=== PATIENT | female | born 2000 | race Caucasian/White ===

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

== ENCOUNTER 2019-03-19 18:26 | Observation (INO) | payer MEDICAID, OTHER ==
[2019-03-19] MEDS ORDERED: Promethazine 25 MG Tab PO PRN (18:29)
[2019-03-19] MEDS ORDERED: Ondansetron 4 MG/2 ML SDV IV PRN (18:29)
[2019-03-19] MEDS ORDERED: Ketorolac 30 MG/ML SDV IVPUSH PRN (18:29)
[2019-03-19] MEDS ORDERED: Sodium Chloride 0.9% 10 ML Syringe FLUSH PRN (18:29)
[2019-03-19] MEDS ORDERED: Acetaminophen 325 MG Tab PO PRN (18:29)
--- NOTE | 2019-03-19 18:45 | PCM.HP ---
H&P History of Present Illness - General Date of Service: 03/19/19 Admit Problem/Dx: Admission Diagnosis/Problem Admission Diagnosis/Problem Abdominal pain Source of Information: Patient - History of Present Illness Initial Comments - Free Text/Narative: 19 year old female with 1 day history of abdominal pain, rates 10/10, feels better lying with her legs up than flat and not moving. She states started yesterday after lunch, she did not eat anything differently or having any sick contacts. She started vomiting this morning with clear/foamy/yellow emesis. Also having diarrhea since this morning. Denies any fevers but having night sweats and chills. No sinus symptoms. No sore throat. No chest pain or shortness of breath. No dysuria or hematuria. LMP: 2-3 years ago, had Mirena IUD placed for menorrhagia. Was seen in ER in Aug for abdominal pain, had CT which showed 1.8 cm cyst on right ovary, has not follow up with Dr Perdue in regards to this. - Related Data Allergies/Adverse Reactions: Allergies Allergy/AdvReac Type Severity Reaction Status Date / Time Sulfa (Sulfonamide Allergy Hives Verified 08/28/18 02:22 Antibiotics) Home Medications: Home Meds Ciprofloxacin HCl [Cipro] 500 mg PO BID #20 tablet 08/28/18 [Rx] Phenazopyridine HCl [Pyridium] 200 mg PO Q8HR #9 tablet 08/28/18 [Rx] Past Medical History Respiratory History: Reports: Other (See Below) Other Respiratory History: had URI Gastrointestinal History: Reports: Other (See Below) Other Gastrointestinal History: Hx stomach problems. Hx tear is esophagus. 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 Social & Family History - Family History Family Medical History: Noncontributory - Tobacco Use Smoking Status *Q: Former Smoker - Caffeine Use Caffeine Use: Reports: None H&P Review of Systems - Review of Systems: Review Of Systems: See Below General: Reports: Chills, Malaise, Fatigue, Night Sweats. Denies: Fever HEENT: Reports: No Symptoms Pulmonary: Reports: No Symptoms Cardiovascular: Reports: No Symptoms Gastrointestinal: Reports: Abdominal Pain, Anorexia, Diarrhea, Decreased Appetite, Nausea, Vomiting. Denies: Distension Genitourinary: Reports: No Symptoms Musculoskeletal: Reports: No Symptoms Exam - Exam Exam: See Below - Vital Signs Vital Signs: from Clinic: BP:112/57, P100, T98.6F, R18 Weight: 52.404 kg - Exam General: Alert, Oriented, Moderate Distress HEENT: PERRLA, Conjunctiva Clear, EOMI, Hearing Intact, Posterior Pharynx Clear , Pupils Equal, TMs Clear, Other (dry tacky mucosa) Neck: Supple, Trachea Midline Lungs: Clear to Auscultation, Normal Respiratory Effort Cardiovascular: Regular Rate, Regular Rhythm GI/Abdominal Exam: Soft, No Organomegaly, No Distention, No Mass, Guarding, Tender, Abnormal Bowel Sounds (hyperactive). No: Rigid, Rebound Extremities: Normal Inspection, No Pedal Edema Peripheral Pulses: 2+: Radial (L), Radial (R) Skin: Warm, Dry, Intact Neuro Extensive - Mental Status: Alert, Oriented x3, Normal Mood/Affect, Normal Cognition, Memory Intact - Patient Data Lab Results Last 24 hrs: WBC: 18.0, segs 86%, 5% bands, CRP <0.2, CMP within normal limits except total protein slightly elevated. UA: negative nitrites, LEs but moderate epithelials, bacteria, mucus. CT abdomin/pelvis with contrast showed no appendicitis but bilateral ovarian cysts with right measuring 5 cm which is increased from 1.8 cm in Aug 2018. - Problem List (1) Abdominal pain SNOMED Code(s): 64690538 ICD Code: R10.9 - UNSPECIFIED ABDOMINAL PAIN Status: Acute (2) Dehydration SNOMED Code(s): 33941239 ICD Code: E86.0 - DEHYDRATION Status: Acute (3) Nausea & vomiting SNOMED Code(s): 87589289 ICD Code: R11.2 - NAUSEA WITH VOMITING, UNSPECIFIED Status: Acute (4) Diarrhea SNOMED Code(s): 47738095 ICD Code: R19.7 - DIARRHEA, UNSPECIFIED Status: Acute (5) Ovarian cyst SNOMED Code(s): 46180451 ICD Code: N83.209 - UNSPECIFIED OVARIAN CYST, UNSPECIFIED SIDE Status: Chronic Problem Details: noted on Aug 2018 CT, right cyst is enlarged to 5 cm from 1.8 in Aug. Problem List Initiated/Reviewed/Updated: Yes Orders Last 24hrs: Active Orders 24 hr Category Date Time Status Patient Status [ADT] Routine ADT 03/19/19 18:30 Ordered Ambulate [RC] PER UNIT ROUTINE Care 03/19/19 18:32 Ordered Antiembolic Devices [RC] .Routine Care 03/19/19 18:38 Ordered Oxygen Therapy [RC] PRN Care 03/19/19 18:30 Ordered Up ad Barbie [RC] ASDIRECTED Care 03/19/19 18:29 Ordered VTE/DVT Education [RC] Per Unit Routine Care 03/19/19 18:30 Ordered Vital Signs [RC] Q4H Care 03/19/19 18:30 Ordered Clear Liquid Diet [DIET] Diet 03/19/19 Dinner Ordered CBC WITH AUTO DIFF [HEME] AM Lab 03/20/19 05:11 Ordered STOOL CULTURE Routine Lab 03/19/19 18:38 Ordered Acetaminophen [Tylenol] Med 03/19/19 18:29 Ordered 650 mg PO Q4H PRN Ketorolac [Toradol] Med 03/19/19 18:29 Ordered 30 mg IVPUSH Q6H PRN Lactated Ringers @ 125 MLS/HR(1000ml) Med 03/19/19 18:30 Ordered Lactated Ringers [Ringers, Lactated] 1,000 ml IV ASDIRECTED Ondansetron [Zofran] Med 03/19/19 18:29 Ordered 4 mg IV Q6H PRN Promethazine [Phenergan] Med 03/19/19 18:29 Ordered 25 mg PO Q6H PRN Sodium Chloride 0.9% [Saline Flush] Med 03/19/19 18:29 Ordered 10 ml FLUSH ASDIRECTED PRN Peripheral IV Insertion Adult [OM.PC] Routine Oth 03/19/19 18:29 Ordered RADHA Hose [Antiembolic Hose] [OM.PC] Routine Oth 03/19/19 18:38 Ordered Resuscitation Status Routine Resus Stat 03/19/19 18:29 Ordered Medication Orders Acetaminophen (Tylenol) 650 mg PO Q4H PRN PRN Reason: Pain (Mild 1-3)/fever Lactated Ringer's (Ringers, Lactated) 1,000 mls @ 125 mls/hr IV ASDIRECTED CHING Ketorolac Tromethamine (Toradol) 30 mg IVPUSH Q6H PRN PRN Reason: Pain (moderate 4-6) Ondansetron HCl (Zofran) 4 mg IV Q6H PRN PRN Reason: Nausea/Vomiting Promethazine HCl (Phenergan) 25 mg PO Q6H PRN PRN Reason: nausea, able to take PO Sodium Chloride (Saline Flush) 10 ml FLUSH ASDIRECTED PRN PRN Reason: Keep Vein Open Assessment/Plan Comment:: 1. Admit for observation for IV fluids, pain control and observation. 2. Lactated ringers at 125 ml/hr. 3. Repeat CBC in am. Will hold off antibiotics at this time as most likely secondary to dehydration and/or viral gastroenteritis. 4. Stool culture. 5. Phenergan 25 mg PO if able to take orals and Zofran 4 mg IV as needed if unable to take orals. 6. Pain control: Acetaminophen 650 mg as needed fever/mild pain, Toradol 30 mg IV moderate pain. 7. Spoke with Dr Parker who will assume care in the morning. 8. Full Code. 9. Discussed with patient and family need to follow up with Dr Perdue as outpatient to get repeat ultrasound of her cysts in 2 weeks to evaluate.
[2019-03-19] MEDS: Lactated Ringers 1,000 ML IV SCH (20:19)
[2019-03-20] MEDS: Lactated Ringers 1,000 ML IV SCH (04:10)
--- NOTE | 2019-03-20 09:55 | PCM.PN ---
- General Info Date of Service: 03/20/19 Subjective Update: Had some nausea overnight. No pain today. Functional Status: Reports: Pain Controlled, Tolerating Diet - Review of Systems Pulmonary: Reports: No Symptoms Cardiovascular: Reports: No Symptoms Genitourinary: Reports: No Symptoms - Patient Data Vitals - Most Recent: Last Vital Signs Temp 98.3 F 03/20/19 06:10 Pulse 52 L 03/20/19 06:10 Resp 16 03/20/19 06:10 BP 85/42 L 03/20/19 06:10 Pulse Ox 95 03/20/19 06:10 Weight - Most Recent: 56.109 kg I&O - Last 24 Hours: Intake & Output 03/19/19 03/20/19 03/20/19 22:59 06:59 14:59 Intake Total 320 960 0 Output Total 200 0 0 Balance 120 960 0 Lab Results Last 24 Hours: Laboratory Results - last 24 hr 03/20/19 Range/Units 06:30 WBC 9.9 (4.5-12.0) X10-3/uL RBC 4.14 (3.23-5.20) x10(6)uL Hgb 13.1 (11.5-15.5) g/dL Hct 38.7 (30.0-51.3) % MCV 93.5 (80-96) fL MCH 31.5 (27.7-33.6) pg MCHC 33.7 (32.2-35.4) g/dL RDW 12.4 (11.5-15.5) % Plt Count 152 (125-369) X10(3)uL MPV 9.2 (7.4-10.4) fL Neut % (Auto) 57.5 (46-82) % Lymph % (Auto) 29.7 (13-37) % [place] % (Auto) 7.7 (4-12) % Eos % (Auto) 3 (1.0-5.0) % Baso % (Auto) 2 (0-2) % Neut # (Auto) 5.7 (1.6-8.3) # Lymph # (Auto) 2.9 (0.6-5.0) # [place] # (Auto) 0.8 (0.0-1.3) # Eos # (Auto) 0.3 (0.0-0.8) # Baso # (Auto) 0.2 (0.0-0.2) # Med Orders - Current: Current Medications Acetaminophen (Tylenol) 650 mg PO Q4H PRN PRN Reason: Pain (Mild 1-3)/fever Lactated Ringer's (Ringers, Lactated) 1,000 mls @ 125 mls/hr IV ASDIRECTED CHING Last Admin: 03/20/19 04:10 Dose: 125 mls/hr Ketorolac Tromethamine (Toradol) 30 mg IVPUSH Q6H PRN PRN Reason: Pain (moderate 4-6) Last Admin: 03/19/19 20:20 Dose: 30 mg Ondansetron HCl (Zofran) 4 mg IV Q6H PRN PRN Reason: Nausea/Vomiting Last Admin: 03/19/19 20:21 Dose: 4 mg Promethazine HCl (Phenergan) 25 mg PO Q6H PRN PRN Reason: nausea, able to take PO Last Admin: 03/19/19 23:04 Dose: 25 mg Sodium Chloride (Saline Flush) 10 ml FLUSH ASDIRECTED PRN PRN Reason: Keep Vein Open - Exam General: Alert, Oriented Lungs: Clear to Auscultation Cardiovascular: Regular Rate GI/Abdominal Exam: Normal Bowel Sounds, Soft, Non-Tender, No Mass - Problem List & Annotations (1) Leukocytosis SNOMED Code(s): 759975704, 120298337 Code(s): D72.829 - ELEVATED WHITE BLOOD CELL COUNT, UNSPECIFIED Status: Acute Current Visit: Yes Qualifiers: Leukocytosis type: bandemia Qualified Code(s): D72.825 - Bandemia (2) Abdominal pain SNOMED Code(s): 01040585 Code(s): R10.9 - UNSPECIFIED ABDOMINAL PAIN Status: Acute Current Visit: No Qualifiers: Abdominal location: generalized Qualified Code(s): R10.84 - Generalized abdominal pain (3) Dehydration SNOMED Code(s): 17406016 Code(s): E86.0 - DEHYDRATION Status: Acute Current Visit: No (4) Diarrhea SNOMED Code(s): 35621530 Code(s): R19.7 - DIARRHEA, UNSPECIFIED Status: Acute Current Visit: No (5) Nausea & vomiting SNOMED Code(s): 92563771 Code(s): R11.2 - NAUSEA WITH VOMITING, UNSPECIFIED Status: Acute Current Visit: No (6) Ovarian cyst SNOMED Code(s): 88462713 Code(s): N83.209 - UNSPECIFIED OVARIAN CYST, UNSPECIFIED SIDE Status: Chronic Current Visit: No Qualifiers: Laterality: bilateral Qualified Code(s): N83.201 - Unspecified ovarian cyst , right side; N83.202 - Unspecified ovarian cyst, left side Annotation/Comment:: noted on Aug 2018 CT, right cyst is enlarged to 5 cm from 1.8 in Aug. - Problem List Review Problem List Initiated/Reviewed/Updated: Yes - Plan Plan:: CBC is normal this morning. [facility]
[2019-03-20 10:53] VITALS: BP 98/57; PULSE 48
== END 2019-03-20 10:41 | disposition home or self-care (01) ==
LOC: FB.MS 19:16
PROVIDERS: ADMIT Family Medicine; ATTEND Family Medicine
DX: R10.84 Generalized abdominal pain (principal); E86.0 Dehydration; R19.7 Diarrhea, unspecified; R11.2 Nausea with vomiting, unspecified; N83.201 Unspecified ovarian cyst, right side; D72.825 Bandemia; Z88.2 Allergy status to sulfonamides; Z87.891 Personal history of nicotine dependence; Z79.899 Other long term (current) drug therapy
CPT/HCPCS: 36415; 85025; 96361; 96374; 96375; A9270; G0378; J1885; J2405; J7120

== ENCOUNTER 2019-03-29 04:26 | Emergency (ER) | payer MEDICAID, OTHER ==
[2019-03-29] MEDS ORDERED: Ondansetron 4 MG/2 ML SDV IVPUSH ONE (05:16)
[2019-03-29] MEDS ORDERED: Sodium Chloride 0.9% 1,000 ML IV ONE (05:17)
[2019-03-29] MEDS ORDERED: Ketorolac 30 MG/ML SDV IVPUSH ONE (05:21)
--- NOTE | 2019-03-29 05:33 | EDM.PDOC ---
ED HPI GENERAL MEDICAL PROBLEM - General Chief Complaint: Abdominal Pain Stated Complaint: ABD PAIN Time Seen by Provider: 03/29/19 05:00 Source of Information: Reports: Patient, Old Records History Limitations: Reports: No Limitations - History of Present Illness INITIAL COMMENTS - FREE TEXT/NARRATIVE: 19-year-old female presents with concern for nausea, acute onset abdominal pain over the last 3-4 hours which is crampy in nature. Vomited one time, no blood. She has had a history of chronic abdominal pain and reports to some degree chronic ongoing nausea. Also notes she has some constipation, and is uncertain when her last bowel movement was. She has noticed increased urinary frequency and going very small amounts. She also has noticed some vaginal discharge and some spotting over the last 3-4 days which is very light, requiring only a panty liner to be changed 3 or 4 times a day. She has an IUD in place and a history of ovarian cysts. She was admitted at the end of last week with elevated white blood cell count and possible UTI, discharged after one night. Did not go home on any antibiotics. Sexually active with her boyfriend only. Past medical history significant for one 3 years ago, no complications. Diagnosed with ovarian cysts this past winter. Also history of migraines. No history of bleeding or clotting disorders, however chart does note that IUD was placed for heavy periods. She denies fever, any chest pain, cough, shortness of breath, recent upper respiratory tract infections, numbness or tingling in her hands or feet. Does not take any medications regularly at home except for occasional OTC migraine medicine. lower abd RAS Pain Score (Numeric/FACES): 10 - Related Data Allergies Allergy/AdvReac Type Severity Reaction Status Date / Time Sulfa (Sulfonamide Allergy Hives Verified 03/19/19 23:05 Antibiotics) Home Meds: Home Meds Prochlorperazine Maleate [Compazine] 10 mg PO Q6HR PRN #24 tablet 03/29/19 [Rx] cephALEXin [Keflex] 500 mg PO BID 5 Days #10 cap 03/29/19 [Rx] Past Medical History HEENT History: Reports: Other (See Below) Other HEENT History: Wears glasses. Cardiovascular History: Reports: Other (See Below) Other Cardiovascular History: States she runs a fast heart rate. Respiratory History: Reports: Asthma Other Respiratory History: Past history of asthma. Gastrointestinal History: Reports: GERD, Other (See Below) Other Gastrointestinal History: History of stomach problems. History of tear in esophagus, related to acid reflux. 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 Musculoskeletal History: Reports: Other (See Below) Other Musculoskeletal History: Resless leg syndrome, more often in the night. Neurological History: Reports: Migraines Psychiatric History: Reports: Anxiety, Depression, PTSD, Other (See Below) Other Psychiatric History: EBD. Dermatologic History: Reports: Other (See Below) Other Dermatologic History: States she has a concerning rash, not yet evaluated by MD. - Infectious Disease History Infectious Disease History: Reports: None - Past Surgical History HEENT Surgical History: Reports: Other (See Below) Other HEENT Surgeries/Procedures: [place] teeth extraction. Female Surgical History: Reports: Other (See Below) Other Female Surgeries/Procedures: Cyst on right ovary. Social & Family History - Family History Family Medical History: Noncontributory - Tobacco Use Smoking Status *Q: Current Every Day Smoker - Caffeine Use Caffeine Use: Reports: None - Alcohol Use Alcohol Use History: Yes Date/Time of Last Drink Comment: social - Recreational Drug Use Recreational Drug Use: Yes Recreational Drug Type: Reports: Marijuana/Hashish - Sexual History Sexual History: Reports: Sexually Active, Single Partner, Vaginal [employer] - Living Situation & Occupation Living situation: Reports: with Significant Other Occupation: Employed Social History Comment: 1 daughter 3 years old ED ROS GENERAL - Review of Systems Review Of Systems: ROS reveals no pertinent complaints other than HPI. ED EXAM, GENERAL - Physical Exam Exam: See Below Free Text/Narrative:: Gen.: Alert, tired appearing and nontoxic. throat is without erythema, mucous membranes are moist. Head is atraumatic, pupils are equal and reactive, neck is supple and there is no cervical lymphadenopathy. Heart is regular rate and rhythm, lungs are clear with no wheezes or crackles and good air movement. abdomen has positive bowel sounds, soft, nondistended and diffusely tender with some focality in the lower abdomen versus the upper, no rebound or guarding. Pelvic exam shows normal external female genitalia. IUD strings are visible at the os, and the vaginal vault otherwise appears normal with no discharge. No cervical motion tenderness bimanual exam, very slight left adnexal tenderness and none on the right Peripheral pulses +2 in both the upper and lower extremities she has equal strength right side, gait is normal, there is no lower extremity edema. No obvious skin lesions or rashes. Course - Vital Signs Text/Narrative:: labs ordered, UA, test reviewed chart - do not see that she was screened for STDs on last admission, will get GC off urine IVF and zofran ordered abdominal exam benign Last Recorded V/S: Last Vital Signs Temp 36.8 C 03/29/19 04:26 Pulse 71 03/29/19 04:26 Resp 18 03/29/19 04:26 BP 112/57 L 03/29/19 04:26 Pulse Ox 100 03/29/19 04:26 - Orders/Labs/Meds Orders: Active Orders 24 hr Category Date Time Status CHLAMYDIA/GC AMPLIFICATION Routine Lab 03/29/19 04:47 Received CULTURE URINE [RM] Stat Lab 03/29/19 06:20 Ordered cephALEXin [Keflex] Med 03/29/19 06:44 Once 500 mg PO ONETIME ONE Labs: Laboratory Tests 03/29/19 03/29/19 03/29/19 Range/Units 04:47 04:47 05:00 WBC 10.7 (4.5-12.0) X10-3/uL RBC 4.77 (3.23-5.20) x10(6)uL Hgb 14.9 (11.5-15.5) g/dL Hct 44.8 (30.0-51.3) % MCV 93.9 (80-96) fL MCH 31.3 (27.7-33.6) pg MCHC 33.3 (32.2-35.4) g/dL RDW 12.6 (11.5-15.5) % Plt Count 234 (125-369) X10(3)uL MPV 8.8 (7.4-10.4) fL Neut % (Auto) 75.5 (46-82) % Lymph % (Auto) 15.5 (13-37) % [place] % (Auto) 5.0 (4-12) % Eos % (Auto) 1 (1.0-5.0) % Baso % (Auto) 3 H (0-2) % Neut # (Auto) 8.1 (1.6-8.3) # Lymph # (Auto) 1.7 (0.6-5.0) # [place] # (Auto) 0.5 (0.0-1.3) # Eos # (Auto) 0.1 (0.0-0.8) # Baso # (Auto) 0.3 H (0.0-0.2) # Sodium (135-145) mmol/L Potassium (3.5-5.3) mmol/L Chloride (100-110) mmol/L Carbon Dioxide (21-32) mmol/L BUN (7-18) mg/dL Creatinine (0.55-1.02) mg/dL Est Cr Clr Drug Dosing mL/min Estimated GFR (MDRD) (>60) BUN/Creatinine Ratio (9-20) Glucose (80-116) mg/dL Calcium (8.6-10.2) mg/dL Total Bilirubin (0.1-1.3) mg/dL AST (5-25) IU/L ALT (12-36) U/L Alkaline Phosphatase (56-112) IU/L Total Protein (6.0-8.0) g/dL Albumin (3.5-5.2) g/dL Globulin g/dL Albumin/Globulin Ratio Amylase (25-115) U/L Urine Color Yellow (YELLOW) Urine Appearance Slightly cloudy (CLEAR) Urine pH 6.5 (5.0-6.5) Ur Specific [place] 1.010 (1.010-1.025) Urine Protein Negative (NEGATIVE) mg/dL Urine Glucose (UA) Normal (NORMAL) mg/dL Urine Ketones 50 H (NEGATIVE) mg/dL Urine Occult Blood Large H (NEGATIVE) Urine Nitrite Negative (NEGATIVE) Urine Bilirubin Small H (NEGATIVE) Urine Urobilinogen 1 H (NEGATIVE) mg/dL Ur Leukocyte Esterase Small H (NEGATIVE) Urine RBC 5-10 H (0-5) Urine WBC 5-10 H (0-5) Ur Squamous Epith Cells Moderate H (NS,R,O) Urine Bacteria Moderate H (NS) Urine Mucus Moderate H (NS) Urine HCG, Qual Negative (NEGATIVE) 03/29/19 Range/Units 05:00 WBC (4.5-12.0) X10-3/uL RBC (3.23-5.20) x10(6)uL Hgb (11.5-15.5) g/dL Hct (30.0-51.3) % MCV (80-96) fL MCH (27.7-33.6) pg MCHC (32.2-35.4) g/dL RDW (11.5-15.5) % Plt Count (125-369) X10(3)uL MPV (7.4-10.4) fL Neut % (Auto) (46-82) % Lymph % (Auto) (13-37) % [place] % (Auto) (4-12) % Eos % (Auto) (1.0-5.0) % Baso % (Auto) (0-2) % Neut # (Auto) (1.6-8.3) # Lymph # (Auto) (0.6-5.0) # [place] # (Auto) (0.0-1.3) # Eos # (Auto) (0.0-0.8) # Baso # (Auto) (0.0-0.2) # Sodium 139 (135-145) mmol/L Potassium 4.1 (3.5-5.3) mmol/L Chloride 104 (100-110) mmol/L Carbon Dioxide 23 (21-32) mmol/L BUN 11 (7-18) mg/dL Creatinine 0.8 (0.55-1.02) mg/dL Est Cr Clr Drug Dosing 98.80 mL/min Estimated GFR (MDRD) > 60 (>60) BUN/Creatinine Ratio 13.8 (9-20) Glucose 92 (80-116) mg/dL Calcium 9.3 (8.6-10.2) mg/dL Total Bilirubin 0.7 (0.1-1.3) mg/dL AST 18 D (5-25) IU/L ALT 16 D (12-36) U/L Alkaline Phosphatase 47 L (56-112) IU/L Total Protein 8.1 H (6.0-8.0) g/dL Albumin 4.3 (3.5-5.2) g/dL Globulin 3.8 g/dL Albumin/Globulin Ratio 1.1 Amylase 83 (25-115) U/L Urine Color (YELLOW) Urine Appearance (CLEAR) Urine pH (5.0-6.5) Ur Specific [place] (1.010-1.025) Urine Protein (NEGATIVE) mg/dL Urine Glucose (UA) (NORMAL) mg/dL Urine Ketones (NEGATIVE) mg/dL Urine Occult Blood (NEGATIVE) Urine Nitrite (NEGATIVE) Urine Bilirubin (NEGATIVE) Urine Urobilinogen (NEGATIVE) mg/dL Ur Leukocyte Esterase (NEGATIVE) Urine RBC (0-5) Urine WBC (0-5) Ur Squamous Epith Cells (NS,R,O) Urine Bacteria (NS) Urine Mucus (NS) Urine HCG, Qual (NEGATIVE) Meds: Medications Discontinued Medications Generic Name Dose Route Start Last Admin Trade Name Freq PRN Reason Stop Dose Admin Sodium Chloride 1,000 mls @ 999 mls/hr 03/29/19 05:17 03/29/19 05:23 Normal Saline IV 03/29/19 06:17 999 mls/hr .BOLUS ONE Administration Ketorolac Tromethamine 30 mg 03/29/19 05:21 03/29/19 05:25 Toradol IVPUSH 03/29/19 05:22 30 mg ONETIME ONE Administration Ondansetron HCl 4 mg 03/29/19 05:16 03/29/19 05:22 Zofran IVPUSH 03/29/19 05:17 4 mg ONETIME ONE Administration - Re-Assessments/Exams Free Text/Narrative Re-Assessment/Exam: 03/29/19 labs reviewed and are within normal limits no signs of systemic infection. Her urinalysis appears infected. It is a first void, so requested be sent for gonorrhea and chlamydia screening as patient is with a new boyfriend. We will collect another urinalysis for urine culture only and trying get a clean catch, discussed this with the patient and she is agreeable. Pelvic exam does not reveal any additional source of pathology. Discussed with patient discharged on out patient antibiotics for bladder infection and follow up with PCP and/or FREEZING ROOM WORKER regarding ovarian cysts Departure - Departure Time of Disposition: 06:47 Disposition: Home, Self-Care 01 Condition: Fair Clinical Impression: UTI (urinary tract infection) - Discharge Information *PRESCRIPTION DRUG MONITORING PROGRAM REVIEWED*: Not Applicable *COPY OF PRESCRIPTION DRUG MONITORING REPORT IN PATIENT JESSICA: Not Applicable Prescriptions: Prochlorperazine Maleate [Compazine] 10 mg PO Q6HR PRN #24 tablet PRN Reason: Nausea cephALEXin [Keflex] 500 mg PO BID 5 Days #10 cap Referrals: Flaquito Perdue MD [Primary Care Provider] - Forms: ED Department Discharge Additional Instructions: recommend using miralax and/or fiber gummies to help with constipation. Prune juice can also be helpful use/take a probiotic of some sort (available at pharmacy) while on antibiotic and after finishing for a couple more weeks first dose of antibiotic for UTI given here medicinal plant picker prescription for keflex and start tonight compazine prescription also given for zofran gonorrhea and chlamydia testing performed but this takes a few days to result. If you have not heard the results by tuesday, please call the ER and someone will check on them for you. Followup with PCP and/or FREEZING ROOM WORKER regarding ovarian cysts and ongoing abdominal discomfort - My Orders Last 24 Hours: My Active Orders 03/29/19 04:47 CHLAMYDIA/GC AMPLIFICATION Routine 03/29/19 06:20 CULTURE URINE [RM] Stat 03/29/19 06:44 cephALEXin [Keflex] 500 mg PO ONETIME ONE - Assessment/Plan Last 24 Hours: My Active Orders 03/29/19 04:47 CHLAMYDIA/GC AMPLIFICATION Routine 03/29/19 06:20 CULTURE URINE [RM] Stat 03/29/19 06:44 cephALEXin [Keflex] 500 mg PO ONETIME ONE
[2019-03-29] MEDS ORDERED: Cephalexin 500 MG Cap PO ONE (06:44)
[2019-03-29 07:51] VITALS: BP 100/63; PULSE 56
[2019-04-01 11:07] LABS: CHLAMYDIA TRACHOMATIS, NAA Positive (Negative); NEISSERIA GONORRHOEAE, NAA Negative (Negative)
== END 2019-03-29 07:07 | disposition home or self-care (01) ==
LOC: FB.ED 04:26
DX: N39.0 Urinary tract infection, site not specified (principal); F17.200 Nicotine dependence, unspecified, uncomplicated; Z88.2 Allergy status to sulfonamides
CPT/HCPCS: 36415; 80053; 81001; 81025; 82150; 85025; 87086; 87088; 87186; 87491; 87591; 96361; 96374; 96375; 99283; A9270; J1885; J2405; J7030; 99284

== ENCOUNTER 2020-05-13 22:35 | Emergency (ER) | payer MEDICAID ==
[2020-05-13] MEDS ORDERED: Ondansetron 4 MG Tab.DIS PO ONE (22:36)
[2020-05-13 22:58] VITALS: BP 98/66; PULSE 66
[2020-05-13] MEDS ORDERED: Sodium Chloride 0.9% 10 ML Syringe FLUSH PRN (23:21)
--- NOTE | 2020-05-13 23:21 | EDM.PDOC ---
ED HPI GENERAL MEDICAL PROBLEM - General Chief Complaint: Abdominal Pain Stated Complaint: NAUSEA Time Seen by Provider: 05/13/20 23:00 Source of Information: Reports: Patient History Limitations: Reports: No Limitations - History of Present Illness INITIAL COMMENTS - FREE TEXT/NARRATIVE: Patient presented to the ED because of persistent nauseaurinary symptoms./vomiting/diarrhea which started this morning. She also has cramping abdominal pain over the LLQ, 10. There is no associated fever,chills. There is no Left Lower Abdominal Pain Score (Numeric/FACES): 9 - Related Data Allergies Allergy/AdvReac Type Severity Reaction Status Date / Time Sulfa (Sulfonamide Allergy Hives Verified 03/19/19 23:05 Antibiotics) Home Meds: Home Meds Lansoprazole [Prevacid] 30 mg PO DAILY #30 capsule. 05/14/20 [Rx] Past Medical History HEENT History: Reports: Other (See Below) Other HEENT History: Wears glasses. Cardiovascular History: Reports: Other (See Below) Other Cardiovascular History: States she runs a fast heart rate. Respiratory History: Reports: Asthma Other Respiratory History: Past history of asthma. Gastrointestinal History: Reports: GERD, Other (See Below) Other Gastrointestinal History: History of stomach problems. History of tear in esophagus, related to acid reflux. 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 Musculoskeletal History: Reports: Other (See Below) Other Musculoskeletal History: Resless leg syndrome, more often in the night. Neurological History: Reports: Migraines Psychiatric History: Reports: Anxiety, Depression, PTSD, Other (See Below) Other Psychiatric History: EBD. Dermatologic History: Reports: Other (See Below) Other Dermatologic History: States she has a concerning rash, not yet evaluated by MD. - Infectious Disease History Infectious Disease History: Reports: None - Past Surgical History HEENT Surgical History: Reports: Other (See Below) Other HEENT Surgeries/Procedures: [place] teeth extraction. Female Surgical History: Reports: Other (See Below) Other Female Surgeries/Procedures: Cyst on right ovary. Social & Family History - Family History Family Medical History: Noncontributory - Tobacco Use Smoking Status *Q: Current Every Day Smoker Years of Tobacco use: 5 Packs/Tins Daily: 1 - Caffeine Use Caffeine Use: Reports: None - Recreational Drug Use Recreational Drug Use: Yes Drug Use in Last 12 Months: Yes Recreational Drug Type: Reports: Marijuana/Hashish - Sexual History Sexual History: Reports: Sexually Active, Single Partner, Vaginal [place] - Living Situation & Occupation Living situation: Reports: with Significant Other Occupation: Employed ED ROS GENERAL - Review of Systems Review Of Systems: See Below Constitutional: Reports: No Symptoms HEENT: Reports: No Symptoms Respiratory: Reports: No Symptoms Cardiovascular: Reports: No Symptoms Endocrine: Reports: No Symptoms GI/Abdominal: Reports: Abdominal Pain, Diarrhea, Nausea, Vomiting : Reports: No Symptoms, Discharge, Dysuria Musculoskeletal: Reports: No Symptoms Skin: Reports: No Symptoms Neurological: Reports: No Symptoms Psychiatric: Reports: No Symptoms ED EXAM, GI/ABD - Physical Exam Exam: See Below Exam Limited By: No Limitations General Appearance: Alert, No Apparent Distress Ears: Normal External Exam, Normal Canal, Hearing Grossly Normal Nose: Normal Inspection, Normal Mucosa, No Blood Throat/Mouth: Normal Inspection, Normal Lips, Normal Teeth, Normal Gums Head: Atraumatic, Normocephalic Respiratory/Chest: No Respiratory Distress, Lungs Clear, Normal Breath Sounds, No Accessory Muscle Use, Chest Non-Tender Cardiovascular: Normal Peripheral Pulses, Regular Rate, Rhythm, No Edema, No Gallop, No JVD, No Murmur, No Rub GI/Abdominal Exam: Normal Bowel Sounds, Soft, No Organomegaly, No Distention, No Abnormal Bruit, No Mass, Pelvis Stable, Other (tenderness LLQ,hyperactive BS) Back Exam: Normal Inspection, Full Range of Motion Extremities: Normal Inspection, Normal Range of Motion, Non-Tender Neurological: Alert, Oriented, CN II-XII Intact, Normal Cognition, Normal Gait Course - Vital Signs Text/Narrative:: Labs/CT-abd/pelvis result was discussed with patient and verbalized full understanding NS 1 L bolus Zofran 4 mg IV x1 Vistaril 50 mg IM x1 Compazine 10 mg IV x1 Morphine 2 mg IV x1 Protonix 80 mg IV x1 Last Recorded V/S: Last Vital Signs Temp 36.7 C 05/13/20 22:56 Pulse 66 05/13/20 22:56 Resp 18 05/13/20 22:56 BP 98/66 05/13/20 22:56 Pulse Ox 100 05/13/20 22:56 - Orders/Labs/Meds Orders: Active Orders 24 hr Category Date Time Status Abdomen Pelvis w Cont [CT] Stat Exams 05/13/20 23:21 Taken Saline Lock Insert [OM.PC] Routine Oth 05/13/20 23:21 Ordered Labs: Laboratory Tests 05/13/20 05/13/20 05/13/20 Range/Units 23:30 23:30 23:30 WBC 12.5 H (4.5-12.0) X10-3/uL RBC 4.92 (3.23-5.20) x10(6)uL Hgb 15.8 H (11.5-15.5) g/dL Hct 47.1 (30.0-51.3) % MCV 95.8 (80-96) fL MCH 32.0 (27.7-33.6) pg MCHC 33.5 (32.2-35.4) g/dL RDW 14.8 (11.5-15.5) % Plt Count 231 (125-369) X10(3)uL MPV 8.3 (7.4-10.4) fL Neut % (Auto) 78.8 (46-82) % Lymph % (Auto) 10.3 L (13-37) % [place] % (Auto) 7.0 (4-12) % Eos % (Auto) 1 (1.0-5.0) % Baso % (Auto) 3 H (0-2) % Neut # (Auto) 9.8 H (1.6-8.3) # Lymph # (Auto) 1.3 (0.6-5.0) # [place] # (Auto) 0.9 (0.0-1.3) # Eos # (Auto) 0.1 (0.0-0.8) # Baso # (Auto) 0.4 H (0.0-0.2) # Sodium 138 (135-145) mmol/L Potassium 3.8 (3.5-5.3) mmol/L Chloride 99 L D (100-110) mmol/L Carbon Dioxide 24 (21-32) mmol/L BUN 13 (7-18) mg/dL Creatinine 1.0 (0.55-1.02) mg/dL Est Cr Clr Drug Dosing TNP Estimated GFR (MDRD) > 60 (>60) BUN/Creatinine Ratio 13.0 (9-20) Glucose 95 (80-116) mg/dL Calcium 9.5 (8.6-10.2) mg/dL Total Bilirubin 2.0 H (0.1-1.3) mg/dL AST 17 (5-25) IU/L ALT 13 D (12-36) U/L Alkaline Phosphatase 72 (56-112) IU/L Total Protein 8.0 (6.0-8.0) g/dL Albumin 4.5 (3.5-5.2) g/dL Globulin 3.5 g/dL Albumin/Globulin Ratio 1.3 Amylase 47 (25-115) U/L Lipase 59 L (73-393) U/L Urine Color (YELLOW) Urine Appearance (CLEAR) Urine pH (5.0-6.5) Ur Specific [place] (1.010-1.025) Urine Protein (NEGATIVE) mg/dL Urine Glucose (UA) (NORMAL) mg/dL Urine Ketones (NEGATIVE) mg/dL Urine Occult Blood (NEGATIVE) Urine Nitrite (NEGATIVE) Urine Bilirubin (NEGATIVE) Urine Urobilinogen (NEGATIVE) mg/dL Ur Leukocyte Esterase (NEGATIVE) Urine RBC (0-5) Urine WBC (0-5) Ur Squamous Epith Cells (NS,R,O) Urine Bacteria (NS) 05/14/20 Range/Units 00:00 WBC (4.5-12.0) X10-3/uL RBC (3.23-5.20) x10(6)uL Hgb (11.5-15.5) g/dL Hct (30.0-51.3) % MCV (80-96) fL MCH (27.7-33.6) pg MCHC (32.2-35.4) g/dL RDW (11.5-15.5) % Plt Count (125-369) X10(3)uL MPV (7.4-10.4) fL Neut % (Auto) (46-82) % Lymph % (Auto) (13-37) % [place] % (Auto) (4-12) % Eos % (Auto) (1.0-5.0) % Baso % (Auto) (0-2) % Neut # (Auto) (1.6-8.3) # Lymph # (Auto) (0.6-5.0) # [place] # (Auto) (0.0-1.3) # Eos # (Auto) (0.0-0.8) # Baso # (Auto) (0.0-0.2) # Sodium (135-145) mmol/L Potassium (3.5-5.3) mmol/L Chloride (100-110) mmol/L Carbon Dioxide (21-32) mmol/L BUN (7-18) mg/dL Creatinine (0.55-1.02) mg/dL Est Cr Clr Drug Dosing Estimated GFR (MDRD) (>60) BUN/Creatinine Ratio (9-20) Glucose (80-116) mg/dL Calcium (8.6-10.2) mg/dL Total Bilirubin (0.1-1.3) mg/dL AST (5-25) IU/L ALT (12-36) U/L Alkaline Phosphatase (56-112) IU/L Total Protein (6.0-8.0) g/dL Albumin (3.5-5.2) g/dL Globulin g/dL Albumin/Globulin Ratio Amylase (25-115) U/L Lipase (73-393) U/L Urine Color Yellow (YELLOW) Urine Appearance Clear (CLEAR) Urine pH 8.0 H (5.0-6.5) Ur Specific [place] 1.015 (1.010-1.025) Urine Protein Negative (NEGATIVE) mg/dL Urine Glucose (UA) Normal (NORMAL) mg/dL Urine Ketones 150 H (NEGATIVE) mg/dL Urine Occult Blood Negative (NEGATIVE) Urine Nitrite Negative (NEGATIVE) Urine Bilirubin Negative (NEGATIVE) Urine Urobilinogen Normal (NEGATIVE) mg/dL Ur Leukocyte Esterase Negative (NEGATIVE) Urine RBC 0-5 (0-5) Urine WBC 0-5 (0-5) Ur Squamous Epith Cells Few H (NS,R,O) Urine Bacteria Few H (NS) Meds: Medications Discontinued Medications Generic Name Dose Route Start Last Admin Trade Name Freq PRN Reason Stop Dose Admin Hydroxyzine HCl 50 mg 05/14/20 02:20 05/14/20 02:24 Vistaril IM 05/14/20 02:21 50 mg ONETIME ONE Administration Prochlorperazine Edisylate 10 52 mls @ 150 mls/hr 05/13/20 23:22 05/14/20 01:42 mg/ Sodium Chloride IV 05/13/20 23:42 150 mls/hr ONETIME ONE Administration Sodium Chloride 1,000 mls @ 999 mls/hr 05/13/20 23:30 05/14/20 01:30 Normal Saline IV 999 mls/hr ASDIRECTED CHING Administration Iopamidol 100 ml 05/14/20 00:41 05/14/20 00:57 Isovue-370 (76%) IV 05/14/20 00:42 100 ml . DIRECTED ONE Administration Morphine Sulfate 2 mg 05/13/20 23:22 05/14/20 00:20 Morphine IVPUSH 05/13/20 23:23 2 mg ONETIME ONE Administration Ondansetron HCl 4 mg 05/13/20 23:22 05/14/20 00:17 Zofran IVPUSH 05/13/20 23:23 4 mg ONETIME ONE Administration Pantoprazole Sodium 80 mg 05/13/20 23:24 05/14/20 00:27 Protonix Iv IVPUSH 05/13/20 23:25 80 mg .BOLUS ONE Administration Sodium Chloride 10 ml 05/13/20 23:21 05/14/20 00:23 Saline Flush FLUSH 10 ml ASDIRECTED PRN Administration Keep Vein Open Departure - Departure Time of Disposition: 02:00 Disposition: Home, Self-Care 01 Condition: Good Clinical Impression: GERD (gastroesophageal reflux disease), Acute gastroenteritis - Discharge Information Prescriptions: Lansoprazole [Prevacid] 30 mg PO DAILY #30 capsule.dr Instructions: Gastroesophageal Reflux Disease, Adult, [id number] Referrals: PCP,None [Primary Care Provider] - Forms: ED Department Discharge Additional Instructions: please read discharge instructions on acid reflux and gastroenteritis increase oral fluids bland diet take prevacid 30 mg daily zofran odt 4mg every 4 hours as needed for nausea imodium 2 tablets every 6 hours as needed for diarrhea(over the counter) follow up as needed Sepsis Event Note (ED) - Evaluation Sepsis Screening Result: No Definite Risk - My Orders Last 24 Hours: My Active Orders 05/13/20 23:21 Abdomen Pelvis w Cont [CT] Stat Saline Lock Insert [OM.PC] Routine - Assessment/Plan Last 24 Hours: My Active Orders 05/13/20 23:21 Abdomen Pelvis w Cont [CT] Stat Saline Lock Insert [OM.PC] Routine
[2020-05-13] MEDS ORDERED: Ondansetron 4 MG/2 ML SDV IVPUSH ONE (23:22)
[2020-05-13] MEDS ORDERED: Morphine 2 MG/ML SYRINGE IVPUSH ONE (23:22)
[2020-05-13] MEDS ORDERED: Prochlorperazine 10 MG in Sodium Chloride 0.9% 50 ML IV ONE (23:22)
[2020-05-13] MEDS ORDERED: Pantoprazole 40 MG Vial IVPUSH ONE (23:24)
[2020-05-13] MEDS ORDERED: Sodium Chloride 0.9% 1,000 ML IV SCH (23:30)
[2020-05-14] MEDS ORDERED: Iopamidol 755 Mg/ML 100 ML Bottle IV ONE (00:41)
[2020-05-14] MEDS ORDERED: hydrOXYzine HCl 50 MG/ML SDV IM ONE (02:20)
== END 2020-05-14 02:30 | disposition home or self-care (01) ==
LOC: FB.ED 22:35
DX: K21.9 Gastro-esophageal reflux disease without esophagitis (principal); K52.9 Noninfective gastroenteritis and colitis, unspecified; J45.909 Unspecified asthma, uncomplicated; F17.210 Nicotine dependence, cigarettes, uncomplicated; Z88.2 Allergy status to sulfonamides; Z79.899 Other long term (current) drug therapy; Z79.82 Long term (current) use of aspirin
CPT/HCPCS: 36415; 74177; 80053; 81001; 82150; 83690; 85025; 96365; 96372; 96375; 99284; A9270; C9113; J0780; J2270; J2405; J3410; J7030; J7050; Q9967

== ENCOUNTER 2020-05-19 08:33 | Emergency (ER) | payer SELFPAY ==
[2020-05-19] MEDS ORDERED: Ketorolac 30 MG/ML SDV IVPUSH ONE (09:26)
[2020-05-19] MEDS ORDERED: Magnesium Citrate Solution 296 ML Bottle PO ONE (09:27)
[2020-05-19] MEDS ORDERED: hydrOXYzine HCl 50 MG/ML SDV IM ONE (09:27)
[2020-05-19] MEDS ORDERED: Prochlorperazine 10 MG in Sodium Chloride 0.9% 50 ML IV ONE (09:27)
[2020-05-19] MEDS ORDERED: Polyethylene Glycol 3350 Powder 17 GM Packet PO SCH (09:30)
[2020-05-19] MEDS ORDERED: Sodium Chloride 0.9% 1,000 ML IV SCH (09:30)
[2020-05-19] MEDS ORDERED: Prochlorperazine 10 MG/2 ML SDV IVPUSH ONE (09:36)
[2020-05-19] MEDS ORDERED: LORazepam 2 MG/ML SDV IVPUSH STA (09:58)
[2020-05-19] MEDS ORDERED: Ondansetron 4 MG/2 ML SDV IVPUSH ONE (09:58)
[2020-05-19] MEDS ORDERED: LORazepam 2 MG/ML SDV IVPUSH ONE (10:29)
--- NOTE | 2020-05-19 10:55 | EDM.PDOC ---
ED HPI GENERAL MEDICAL PROBLEM - General Chief Complaint: Abdominal Pain Stated Complaint: SEVERE ABD PAIN Time Seen by Provider: 05/19/20 08:40 Source of Information: Reports: Patient History Limitations: Reports: No Limitations - History of Present Illness INITIAL COMMENTS - FREE TEXT/NARRATIVE: Patient presented to the ED because of abdominal pain, nausea , and vomiting for 1 week. She is constipated for almost a week now. The pain is sharp and cramping,8/10. There is no fever or chills,cough/cold symptoms. She was seen in our ED 1 week ago and a comple GI work up [facility] includes CT-abd/pelvis, labs were all normal. abd Pain Score (Numeric/FACES): 10 - Related Data Allergies Allergy/AdvReac Type Severity Reaction Status Date / Time Sulfa (Sulfonamide Allergy Hives Verified 03/19/19 23:05 Antibiotics) Home Meds: Home Meds Lansoprazole [Prevacid] 30 mg PO DAILY #30 capsule. 05/14/20 [Rx] Past Medical History HEENT History: Reports: Other (See Below) Other HEENT History: Wears glasses. Cardiovascular History: Reports: Other (See Below) Other Cardiovascular History: States she runs a fast heart rate. Respiratory History: Reports: Asthma Other Respiratory History: Past history of asthma. Gastrointestinal History: Reports: GERD, Other (See Below) Other Gastrointestinal History: History of stomach problems. History of tear in esophagus, related to acid reflux. Genitourinary History: Reports: UTI, Recurrent HYDRAULIC SPINNER History: Reports: Polycystic Ovaries, Other HYDRAULIC SPINNER History: IUD placed. Musculoskeletal History: Reports: Other (See Below) Other Musculoskeletal History: Resless leg syndrome, more often in the night. Neurological History: Reports: Migraines Psychiatric History: Reports: Anxiety, Depression, PTSD, Other (See Below) Other Psychiatric History: EBD. Dermatologic History: Reports: Other (See Below) Other Dermatologic History: States she has a concerning rash, not yet evaluated by MD. - Infectious Disease History Infectious Disease History: Reports: None - Past Surgical History HEENT Surgical History: Reports: Other (See Below) Other HEENT Surgeries/Procedures: [place] teeth extraction. Female Surgical History: Reports: Other (See Below) Other Female Surgeries/Procedures: Cyst on right ovary. Social & Family History - Family History Family Medical History: Noncontributory - Tobacco Use Smoking Status *Q: Current Every Day Smoker Years of Tobacco use: 6 Packs/Tins Daily: 1.5 - Caffeine Use Caffeine Use: Reports: None - Sexual History Sexual History: Reports: Sexually Active, Single Partner, Vaginal [place] - Living Situation & Occupation Living situation: Reports: with Significant Other Occupation: Employed ED ROS GENERAL - Review of Systems Review Of Systems: See Below Constitutional: Reports: No Symptoms HEENT: Reports: No Symptoms Respiratory: Reports: No Symptoms Cardiovascular: Reports: No Symptoms Endocrine: Reports: No Symptoms GI/Abdominal: Reports: Abdominal Pain, Nausea, Vomiting Musculoskeletal: Reports: No Symptoms Skin: Reports: No Symptoms Neurological: Reports: No Symptoms ED EXAM, GI/ABD - Physical Exam Exam: See Below Exam Limited By: No Limitations General Appearance: Alert, No Apparent Distress Eyes: Bilateral: Nystagmus Ears: Normal External Exam, Normal Canal Nose: Normal Inspection, Normal Mucosa Throat/Mouth: Normal Inspection, Normal Lips, Normal Teeth, Normal Gums Head: Atraumatic, Normocephalic Neck: Normal Inspection, Supple, Non-Tender, Full Range of Motion Respiratory/Chest: No Respiratory Distress, Lungs Clear, Normal Breath Sounds Cardiovascular: Normal Peripheral Pulses, Regular Rate, Rhythm, No Edema, No Gallop GI/Abdominal Exam: Normal Bowel Sounds, Soft, Non-Tender, No Organomegaly Back Exam: Normal Inspection, Full Range of Motion Extremities: Normal Inspection, Non-Tender Neurological: Alert, Oriented, CN II-XII Intact Course - Vital Signs Text/Narrative:: Labs/Abd xray was discussed with patient and her mom NS 1 L bolus Zofran 8 mg IV x1 Ativan 1 mg IV x2 Compazine 10 mg IV Senna S 2 tablets PO Miralax 34 gms Magnesium citrate 296 ml Last Recorded V/S: Last Vital Signs Temp 36.7 C 05/19/20 08:33 Pulse 85 05/19/20 08:33 Resp 16 05/19/20 08:33 BP 126/83 05/19/20 08:33 Pulse Ox 100 05/19/20 08:33 - Orders/Labs/Meds Orders: Active Orders 24 hr Category Date Time Status Abdomen 2V AP Flat Upright [CR] Stat Exams 05/19/20 09:23 Taken DRUG SCREEN, URINE ALERE [URCHEM] Stat Lab 10/05/20 09:59 Ordered UA W/MICROSCOPIC [URIN] Stat Lab 05/19/20 09:23 Ordered Sodium Chloride 0.9% [Normal Saline] 1,000 ml Med 05/19/20 09:30 Active IV ASDIRECTED polyethylene glycoL 3350 [MiraLAX] Med 05/19/20 09:30 Active 34 gm PO DAILY Medication Orders Sodium Chloride (Normal Saline) 1,000 mls @ 999 mls/hr IV ASDIRECTED CHING Last Admin: 05/19/20 09:50 Dose: 999 mls/hr Documented by: CARLYLE Polyethylene Glycol (Miralax) 34 gm PO DAILY CHING Last Admin: 05/19/20 10:36 Dose: 34 gm Documented by: RENETTA Labs: Laboratory Tests 05/19/20 05/19/20 05/19/20 Range/Units 09:30 09:30 09:30 WBC 14.0 H (4.5-12.0) X10-3/uL RBC 5.00 (3.23-5.20) x10(6)uL Hgb 15.8 H (11.5-15.5) g/dL Hct 47.9 (30.0-51.3) % MCV 95.9 (80-96) fL MCH 31.7 (27.7-33.6) pg MCHC 33.0 (32.2-35.4) g/dL RDW 14.1 (11.5-15.5) % Plt Count 243 (125-369) X10(3)uL MPV 8.5 (7.4-10.4) fL Add Manual Diff Yes Neutrophils % (Manual) 87 H (46-82) % Lymphocytes % (Manual) 11 L (13-37) % Monocytes % (Manual) 2 L (4-12) % Sodium 138 (135-145) mmol/L Potassium 3.8 (3.5-5.3) mmol/L Chloride 100 (100-110) mmol/L Carbon Dioxide 21 (21-32) mmol/L BUN 11 (7-18) mg/dL Creatinine 0.9 (0.55-1.02) mg/dL Est Cr Clr Drug Dosing 85.46 mL/min Estimated GFR (MDRD) > 60 (>60) BUN/Creatinine Ratio 12.2 (9-20) Glucose 107 (80-116) mg/dL Calcium 8.8 (8.6-10.2) mg/dL Total Bilirubin 1.6 H (0.1-1.3) mg/dL AST 14 D (5-25) IU/L ALT 13 (12-36) U/L Alkaline Phosphatase 61 (56-112) IU/L Total Protein 7.9 (6.0-8.0) g/dL Albumin 4.3 (3.5-5.2) g/dL Globulin 3.6 g/dL Albumin/Globulin Ratio 1.2 Amylase 50 (25-115) U/L Lipase 67 L (73-393) U/L Meds: Medications Generic Name Dose Route Start Last Admin Trade Name Freq PRN Reason Stop Dose Admin Sodium Chloride 1,000 mls @ 999 mls/hr 05/19/20 09:30 05/19/20 09:50 Normal Saline IV 999 mls/hr ASDIRECTED CHING Administration Polyethylene Glycol 34 gm 05/19/20 09:30 05/19/20 10:36 Miralax PO 34 gm DAILY CHING Administration Discontinued Medications Generic Name Dose Route Start Last Admin Trade Name Freq PRN Reason Stop Dose Admin Hydroxyzine HCl 50 mg 05/19/20 09:27 05/19/20 09:40 Vistaril IM 05/19/20 09:28 50 mg ONETIME ONE Administration Prochlorperazine Edisylate 10 52 mls @ 150 mls/hr 05/19/20 09:27 mg/ Sodium Chloride IV 05/19/20 09:47 ONETIME ONE Ketorolac Tromethamine 30 mg 05/19/20 09:26 05/19/20 09:42 Toradol IVPUSH 05/19/20 09:27 30 mg ONETIME ONE Administration Lorazepam 1 mg 05/19/20 09:58 05/19/20 10:19 Ativan IVPUSH 05/19/20 09:59 1 mg NOW STA Administration Lorazepam 1 mg 05/19/20 10:29 05/19/20 10:35 Ativan IVPUSH 05/19/20 10:30 1 mg ONETIME ONE Administration Magnesium Citrate 296 ml 05/19/20 09:27 05/19/20 10:19 Citrate Of Magnesia PO 05/19/20 09:28 296 ml ONETIME ONE Administration Ondansetron HCl 8 mg 05/19/20 09:58 05/19/20 10:18 Zofran IVPUSH 05/19/20 09:59 8 mg ONETIME ONE Administration Prochlorperazine Edisylate 10 mg 05/19/20 09:36 05/19/20 09:38 Compazine IVPUSH 05/19/20 09:37 10 mg ONETIME ONE Administration Senna/Docusate Sodium 2 tab 05/19/20 09:26 05/19/20 10:36 Senna Plus PO 05/19/20 09:27 2 tab ONETIME ONE Administration Departure - Departure Time of Disposition: 10:55 Disposition: Home, Self-Care 01 Condition: Good Clinical Impression: Constipation - Discharge Information Instructions: Constipation, Adult, [id number] Referrals: PCP,None [Primary Care Provider] - Forms: ED Department Discharge Additional Instructions: Please read discharge instructions on constipation Drink the entire magnesium citrate and miralax Follow up as needed Sepsis Event Note (ED) - Evaluation Sepsis Screening Result: No Definite Risk - Focused Exam Vital Signs: Vital Signs Temp Pulse Resp BP Pulse Ox 05/19/20 08:33 36.7 C 85 16 126/83 100 - My Orders Last 24 Hours: My Active Orders 05/19/20 09:23 Abdomen 2V AP Flat Upright [CR] Stat UA W/MICROSCOPIC [URIN] Stat 05/19/20 09:30 Sodium Chloride 0.9% [Normal Saline] 1,000 ml IV ASDIRECTED polyethylene glycoL 3350 [MiraLAX] 34 gm PO DAILY 05/19/20 09:59 DRUG SCREEN, URINE ALERE [URCHEM] Stat - Assessment/Plan Last 24 Hours: My Active Orders 05/19/20 09:23 Abdomen 2V AP Flat Upright [CR] Stat UA W/MICROSCOPIC [URIN] Stat 05/19/20 09:30 Sodium Chloride 0.9% [Normal Saline] 1,000 ml IV ASDIRECTED polyethylene glycoL 3350 [MiraLAX] 34 gm PO DAILY 05/19/20 09:59 DRUG SCREEN, URINE ALERE [URCHEM] Stat
[2020-05-19 11:29] VITALS: BP 92/61; PULSE 100
== END 2020-05-19 11:05 | disposition home or self-care (01) ==
LOC: FB.ED 08:33
DX: K59.00 Constipation, unspecified (principal); R11.2 Nausea with vomiting, unspecified; J45.909 Unspecified asthma, uncomplicated; K21.9 Gastro-esophageal reflux disease without esophagitis; F17.210 Nicotine dependence, cigarettes, uncomplicated; Z88.2 Allergy status to sulfonamides; Z79.899 Other long term (current) drug therapy
CPT/HCPCS: 36415; 74019; 80053; 82150; 83690; 85025; 96361; 96372; 96374; 96375; 96376; 99283; A9270; J0780; J1885; J2060; J2405; J3410; J7030

== ENCOUNTER 2020-05-26 19:12 | Emergency (ER) | payer MEDICAID ==
[2020-05-26 19:47] VITALS: BP 102/51; PULSE 69
[2020-05-26] MEDS ORDERED: Sodium Chloride 0.9% 10 ML Syringe FLUSH PRN (19:49)
--- NOTE | 2020-05-26 19:54 | EDM.PDOC ---
<Bladimir Peña - Last Filed: 05/26/20 22:11> ED HPI GENERAL MEDICAL PROBLEM - General Chief Complaint: Abdominal Pain Stated Complaint: ABDOMINAL PAIN Time Seen by Provider: 05/26/20 19:45 Source of Information: Reports: Patient History Limitations: Reports: No Limitations - History of Present Illness INITIAL COMMENTS - FREE TEXT/NARRATIVE: 20-year-old female who has had long-standing problems with constipation and recurring abdominal pain with vomiting since she was a child and has been seen 2 times in the emergency department since 05/13/2020 with this time being the third visit. She has had a workup which has included blood tests and a CT scan of her abdomen and pelvis which were all reassuring. After her last visit, she was treated with MiraLAX at home and reports that she did have some improvement with some bowel movements should with nausea and never really had good bowel movements and beginning about 36 hours ago has had creasing abdominal pain with nausea and vomiting and 8-10 times today. She does report a bowel movement yesterday that was soft and pencillike and was small. Her abdominal pain is in her lower abdomen and this is where the pain usually is located when she has it. It is a sharp and crampy type pain she rates it as a 9-10/10. She also reports she has pain in her lower back that is similar to the pain in her lower abdomen. She has had no fevers or chills. She feels very anxious and feels that her breathing gets worse when her pain is bad and at that time she has tingling around her mouth and in both of her hands. She has been urinating well without hematuria or dysuria. She was able to take liquids well but has not been eating well and she has a dry mouth and feels somewhat weak and dizzy at present. There are no other associated signs or symptoms. There are no other modifying factors. The patient does tell me that she uses marijuana rather frequently. 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 DIRECTOR: Reports: Other (see below) abd Pain Score (Numeric/FACES): 9 - Related Data Allergies Allergy/AdvReac Type Severity Reaction Status Date / Time Sulfa (Sulfonamide Allergy Hives Verified 03/19/19 23:05 Antibiotics) Home Meds: Home Meds Lansoprazole [Prevacid] 30 mg PO DAILY #30 capsule.dr 05/14/20 [Rx] Magnesium Citrate 295 ml PO ONETIME #1 bottle 05/26/20 [Rx] Ondansetron [Zofran ODT] 4 mg PO Q4H PRN #7 tab.dis 05/26/20 [Rx] Sennosides/Docusate Sodium [Senna-S] 2 each PO ONETIME #15 tablet 05/26/20 [Rx] Past Medical History HEENT History: Reports: Impaired Vision, Other (See Below) Other HEENT History: Wears glasses. Respiratory History: Reports: Asthma Other Respiratory History: Past history of asthma. Gastrointestinal History: Reports: GERD, Other (See Below) Other Gastrointestinal History: Recurrent abdominal pain and vomiting and constipation since childhood. Genitourinary History: Reports: UTI, Recurrent DIETARY SERVER History: Reports: Polycystic Ovaries Other DIETARY SERVER History: IUD in place for 4-5 years. Musculoskeletal History: Reports: Other (See Below) Other Musculoskeletal History: Resless leg syndrome. Neurological History: Reports: Migraines Psychiatric History: Reports: Anxiety, Depression, PTSD, Other (See Below) Other Psychiatric History: EBD. - Infectious Disease History Infectious Disease History: Reports: None - Past Surgical History HEENT Surgical History: Reports: Other (See Below) Other HEENT Surgeries/Procedures: [place] teeth extraction. Female Surgical History: Reports: Other (See Below) Other Female Surgeries/Procedures: Cyst on right ovary. Social & Family History - Tobacco Use Smoking Status *Q: Current Every Day Smoker - Caffeine Use Caffeine Use: Reports: None - Alcohol Use Alcohol Use History: Yes Alcohol Use Frequency: Socially (Occasional) - Recreational Drug Use Recreational Drug Use: Yes Recreational Drug Type: Reports: Marijuana/Hashish - Sexual History Sexual History: Reports: Sexually Active, Single Partner, Vaginal [place] - Living Situation & Occupation Occupation: Employed Social History Comment: She is here with her mother jeannine. ED ROS GENERAL - Review of Systems Review Of Systems: See Below Constitutional: Reports: No Symptoms HEENT: Reports: Other (Dry mouth) Respiratory: Reports: No Symptoms Cardiovascular: Reports: No Symptoms GI/Abdominal: Reports: Abdominal Pain, Constipation, Nausea, Vomiting : Reports: No Symptoms Musculoskeletal: Reports: Back Pain (Lower back pain) Skin: Reports: No Symptoms Neurological: Reports: No Symptoms Psychiatric: Reports: Anxiety Hematologic/Lymphatic: Reports: No Symptoms Immunologic: Reports: No Symptoms ED EXAM, GI/ABD - Physical Exam Exam: See Below Exam Limited By: No Limitations General Appearance: Alert, WD/WN, Anxious, Moderate Distress Eyes: Bilateral: Normal Appearance, EOMI Ears: Normal External Exam, Hearing Grossly Normal Nose: Normal Inspection, Normal Mucosa, No Blood Throat/Mouth: Normal Voice, No Airway Compromise, Other (Dry mucous membranes) Head: Atraumatic, Normocephalic Neck: Normal Inspection, Supple, Non-Tender, Full Range of Motion Respiratory/Chest: No Respiratory Distress, Lungs Clear, Normal Breath Sounds, No Accessory Muscle Use, Chest Non-Tender Cardiovascular: Normal Peripheral Pulses, Regular Rate, Rhythm GI/Abdominal Exam: Normal Bowel Sounds, Soft, No Distention, No Mass, Tender (Mildly tender diffusely.) Back Exam: Normal Inspection, Full Range of Motion Extremities: Normal Inspection, Normal Range of Motion, Non-Tender, No Pedal Edema, Normal Capillary Refill Neurological: Alert, Oriented, CN II-XII Intact, Normal Cognition, No Motor/Sensory Deficits Psychiatric: Anxious Skin Exam: Warm, Dry, Intact, Normal Color, No Rash Course - Re-Assessments/Exams Free Text/Narrative Re-Assessment/Exam: 05/26/20 20:40: Lab tests have been ordered. Urine test has been ordered. An IV with normal saline and medications has been ordered. At this point I will be turning the patient over to Dr. Church. I have discussed this with the patient and with her mother. I have discussed the patient's case with Dr. Church. He is familiar with the patient as he has seen her for the 2 other ED visits within the last [address] Church's note for the patient's ED course and for the patient's disposition. Departure - Departure Time of Disposition: 20:40 Disposition: Home, Self-Care 01 Condition: Fair Clinical Impression: Constipation, Cannabinoid hyperemesis syndrome, Vomiting Abdominal pain Qualifiers: Abdominal location: generalized Qualified Code(s): R10.84 - Generalized abdominal pain - Discharge Information Prescriptions: Magnesium Citrate 295 ml PO ONETIME #1 bottle Sennosides/Docusate Sodium [Senna-S] 2 each PO ONETIME #15 tablet Ondansetron [Zofran ODT] 4 mg PO Q4H PRN #7 tab.dis PRN Reason: Nausea Instructions: Constipation, Adult, Nausea, Adult, [id number] Referrals: PCP,None [Primary Care Provider] - Forms: ED Department Discharge Additional Instructions: Please read discharge instructions on cannabinoid hyperemesis syndrome and constipation Increase oral fluids Take all the following medicines at the same time when you get them from your pharmacy 1. Zofran ODT 4 mg, take 1 or 2 tablets before taking the other medicines o prevent nausea 2. Senna S, 2 tablets 3. 1 bottle og magnesium citrate 4. Miralax 2 scoops in 2 glasses of water then drink the entire solution For your maintenance medication take 1 senna -S daily and 1 glass of miralax daily Sepsis Event Note (ED) - Evaluation Sepsis Screening Result: No Definite Risk <Jacob Church - Last Filed: 05/26/20 22:43> ED HPI GENERAL MEDICAL PROBLEM - General Source of Information: Reports: Patient, Family History Limitations: Reports: No Limitations Course - Vital Signs Last Recorded V/S: Last Vital Signs Temp 36.4 C 05/26/20 19:35 Pulse 69 05/26/20 19:35 Resp 16 05/26/20 19:35 BP 102/51 L 05/26/20 19:35 Pulse Ox 100 05/26/20 19:35 - Orders/Labs/Meds Orders: Active Orders 24 hr Category Date Time Status Peripheral IV Insertion Adult [OM.PC] Routine Oth 05/26/20 19:49 Ordered Labs: Laboratory Tests 05/26/20 05/26/20 05/26/20 Range/Units 20:00 20:00 20:00 WBC 12.8 H (4.5-12.0) X10-3/uL RBC 4.99 (3.23-5.20) x10(6)uL Hgb 16.4 H (11.5-15.5) g/dL Hct 47.8 (30.0-51.3) % MCV 95.6 (80-96) fL MCH 32.7 (27.7-33.6) pg MCHC 34.2 (32.2-35.4) g/dL RDW 14.0 (11.5-15.5) % Plt Count 261 (125-369) X10(3)uL MPV 8.3 (7.4-10.4) fL Neut % (Auto) 85.2 H (46-82) % Lymph % (Auto) 9.1 L (13-37) % Hunt % (Auto) 5.0 (4-12) % Eos % (Auto) 0 L (1.0-5.0) % Baso % (Auto) 0 (0-2) % Neut # (Auto) 10.9 H (1.6-8.3) # Lymph # (Auto) 1.2 (0.6-5.0) # Hunt # (Auto) 0.6 (0.0-1.3) # Eos # (Auto) 0.1 (0.0-0.8) # Baso # (Auto) 0.0 (0.0-0.2) # Sodium 136 (135-145) mmol/L Potassium 3.7 (3.5-5.3) mmol/L Chloride 100 (100-110) mmol/L Carbon Dioxide 19 L (21-32) mmol/L BUN 11 (7-18) mg/dL Creatinine 0.7 (0.55-1.02) mg/dL Est Cr Clr Drug Dosing TNP Estimated GFR (MDRD) > 60 (>60) BUN/Creatinine Ratio 15.7 (9-20) Glucose 100 (80-116) mg/dL Calcium 9.8 (8.6-10.2) mg/dL Total Bilirubin 1.4 H (0.1-1.3) mg/dL AST 14 (5-25) IU/L ALT 17 D (12-36) U/L Alkaline Phosphatase 58 (56-112) IU/L Total Protein 8.3 H (6.0-8.0) g/dL Albumin 4.7 (3.5-5.2) g/dL Globulin 3.6 g/dL Albumin/Globulin Ratio 1.3 Lipase 65 L (73-393) U/L Urine Color (YELLOW) Urine Appearance (CLEAR) Urine pH (5.0-6.5) Ur Specific [place] (1.010-1.025) Urine Protein (NEGATIVE) mg/dL Urine Glucose (UA) (NORMAL) mg/dL Urine Ketones (NEGATIVE) mg/dL Urine Occult Blood (NEGATIVE) Urine Nitrite (NEGATIVE) Urine Bilirubin (NEGATIVE) Urine Urobilinogen (NEGATIVE) mg/dL Ur Leukocyte Esterase (NEGATIVE) Urine RBC (0-5) Urine WBC (0-5) Ur Squamous Epith Cells (NS,R,O) Urine Bacteria (NS) Urine HCG, Qual (NEGATIVE) 05/26/20 05/26/20 Range/Units 20:10 20:15 WBC (4.5-12.0) X10-3/uL RBC (3.23-5.20) x10(6)uL Hgb (11.5-15.5) g/dL Hct (30.0-51.3) % MCV (80-96) fL MCH (27.7-33.6) pg MCHC (32.2-35.4) g/dL RDW (11.5-15.5) % Plt Count (125-369) X10(3)uL MPV (7.4-10.4) fL Neut % (Auto) (46-82) % Lymph % (Auto) (13-37) % Hunt % (Auto) (4-12) % Eos % (Auto) (1.0-5.0) % Baso % (Auto) (0-2) % Neut # (Auto) (1.6-8.3) # Lymph # (Auto) (0.6-5.0) # Hunt # (Auto) (0.0-1.3) # Eos # (Auto) (0.0-0.8) # Baso # (Auto) (0.0-0.2) # Sodium (135-145) mmol/L Potassium (3.5-5.3) mmol/L Chloride (100-110) mmol/L Carbon Dioxide (21-32) mmol/L BUN (7-18) mg/dL Creatinine (0.55-1.02) mg/dL Est Cr Clr Drug Dosing Estimated GFR (MDRD) (>60) BUN/Creatinine Ratio (9-20) Glucose (80-116) mg/dL Calcium (8.6-10.2) mg/dL Total Bilirubin (0.1-1.3) mg/dL AST (5-25) IU/L ALT (12-36) U/L Alkaline Phosphatase (56-112) IU/L Total Protein (6.0-8.0) g/dL Albumin (3.5-5.2) g/dL Globulin g/dL Albumin/Globulin Ratio Lipase (73-393) U/L Urine Color Yellow (YELLOW) Urine Appearance Clear (CLEAR) Urine pH 8.0 H (5.0-6.5) Ur Specific [place] 1.005 L (1.010-1.025) Urine Protein Trace (NEGATIVE) mg/dL Urine Glucose (UA) Normal (NORMAL) mg/dL Urine Ketones 50 H (NEGATIVE) mg/dL Urine Occult Blood Negative (NEGATIVE) Urine Nitrite Negative (NEGATIVE) Urine Bilirubin Negative (NEGATIVE) Urine Urobilinogen 1 H (NEGATIVE) mg/dL Ur Leukocyte Esterase Negative (NEGATIVE) Urine RBC 0-5 (0-5) Urine WBC 0-5 (0-5) Ur Squamous Epith Cells Not seen (NS,R,O) Urine Bacteria Rare H (NS) Urine HCG, Qual Negative (NEGATIVE) Meds: Medications Discontinued Medications Generic Name Dose Route Start Last Admin Trade Name Freq PRN Reason Stop Dose Admin Diphenhydramine HCl 50 mg 05/26/20 20:09 05/26/20 20:25 Benadryl IVPUSH 05/26/20 20:10 50 mg ONETIME ONE Administration Haloperidol Lactate 2.5 mg 05/26/20 20:09 05/26/20 20:35 Haldol IVPUSH 05/26/20 20:10 2.5 mg ONETIME ONE Administration Sodium Chloride 1,000 mls @ 999 mls/hr 05/26/20 20:09 05/26/20 20:15 Normal Saline IV 05/26/20 21:09 999 mls/hr .BOLUS ONE Administration Sodium Chloride 1,000 mls @ 125 mls/hr 05/26/20 20:15 Normal Saline IV ASDIRECTED CHING Lorazepam 1 mg 05/26/20 20:09 05/26/20 20:30 Ativan IVPUSH 05/26/20 20:10 1 mg ONETIME ONE Administration Sodium Chloride 10 ml 05/26/20 19:49 05/26/20 20:15 Saline Flush FLUSH 10 ml ASDIRECTED PRN Administration Keep Vein Open Departure - Departure Time of Disposition: 21:30 Condition: Good Sepsis Event Note (ED) - Focused Exam Vital Signs: Vital Signs Temp Pulse Resp BP Pulse Ox 05/26/20 19:35 36.4 C 69 16 102/51 L 100
[2020-05-26] MEDS ORDERED: Sodium Chloride 0.9% 1,000 ML IV ONE (20:09)
[2020-05-26] MEDS ORDERED: diphenhydrAMINE 50 MG/ML SDV IVPUSH ONE (20:09)
[2020-05-26] MEDS ORDERED: LORazepam 2 MG/ML SDV IVPUSH ONE (20:09)
[2020-05-26] MEDS ORDERED: Haloperidol Lactate 5 MG/ML SDV IVPUSH ONE (20:09)
[2020-05-26] MEDS ORDERED: Sodium Chloride 0.9% 1,000 ML IV SCH (20:15)
== END 2020-05-26 21:40 | disposition home or self-care (01) ==
LOC: FB.ED 19:12
DX: K59.00 Constipation, unspecified (principal); R11.10 Vomiting, unspecified; K21.9 Gastro-esophageal reflux disease without esophagitis; J45.909 Unspecified asthma, uncomplicated; F17.200 Nicotine dependence, unspecified, uncomplicated; Z88.2 Allergy status to sulfonamides
CPT/HCPCS: 36415; 80053; 81001; 81025; 83690; 85025; 96374; 96375; 99284; J1200; J1630; J2060; J7030

== ENCOUNTER 2020-05-31 17:40 | Emergency (ER) | payer MEDICAID ==
[2020-05-31] MEDS ORDERED: Sodium Chloride 0.9% 1,000 ML IV ONE (18:31)
[2020-05-31] MEDS ORDERED: Metoclopramide 10 MG/2 ML SDV IVPUSH ONE (18:32)
[2020-05-31] MEDS ORDERED: Pantoprazole 40 MG Vial IVPUSH ONE (18:32)
--- NOTE | 2020-05-31 18:40 | EDM.PDOC ---
<Jacob Church - Last Filed: 05/31/20 20:24> ED HPI GENERAL MEDICAL PROBLEM - General Chief Complaint: Gastrointestinal Problem Stated Complaint: SEVERE NAUSEA Time Seen by Provider: 05/31/20 18:33 - Related Data Allergies Allergy/AdvReac Type Severity Reaction Status Date / Time Sulfa (Sulfonamide Allergy Hives Verified 05/31/20 18:15 Antibiotics) Home Meds: Home Meds Lansoprazole [Prevacid] 30 mg PO DAILY #30 capsule.dr 05/14/20 [Rx] Magnesium Citrate 295 ml PO ONETIME #1 bottle 05/26/20 [Rx] Ondansetron [Zofran ODT] 4 mg PO Q4H PRN #7 tab.dis 05/26/20 [Rx] Sennosides/Docusate Sodium [Senna-S] 2 each PO ONETIME #15 tablet 05/26/20 [Rx] Doxycycline [Vibramycin] 100 mg PO BID #20 cap 05/31/20 [Rx] Course - Vital Signs Text/Narrative:: Labs was discussed with patient NS bolus Phergan 25 mg IV Vistaril 50 mg IM Haldol 2.5 mg IV Benadryl 50 mg IV Rocephin 250 mg IM Doxycycline 100 mg po x1 Departure - Departure Time of Disposition: 20:25 Disposition: Home, Self-Care 01 Condition: Good (chronic abdominal pain) Clinical Impression: Vaginal discharge, Cannabinoid hyperemesis syndrome Abdominal pain Qualifiers: Abdominal location: generalized Qualified Code(s): R10.84 - Generalized abdominal pain - Discharge Information Prescriptions: Doxycycline [Vibramycin] 100 mg PO BID #20 cap Instructions: Abdominal Pain, Adult, [id number], Cannabinoid Hyperemesis Syndrome, Vaginitis Referrals: PCP,None [Primary Care Provider] - Forms: ED Department Discharge Additional Instructions: Please read discharge instructions on abdominal pain, cannabinoid hyperemesis syndrome QUIT using marijuana it cause you to have all these problems of repeated vomiting and abdominal pain Take doxycycline 100 mg twice daily for 10 days Follow up the result of your chlamydia and Gonorrhea Continue taking your Zofran ODT 4mg every 4 hours as needed for nausea <Nigel Shepherd - Last Filed: 06/01/20 07:13> ED HPI GENERAL MEDICAL PROBLEM - General Source of Information: Reports: Patient History Limitations: Reports: No Limitations - History of Present Illness INITIAL COMMENTS - FREE TEXT/NARRATIVE: Presents with N/V since this morning, denies pain. No improvement with Zofran at home. Patient treated at this ED for low abdominal pain and vomiting on 05/13/20, 05/19/20, and 05/26/20 thought to be due to Cannabinoid Hyperemesis Syndrome. Patient has not used marijuana for [address] Abd/Pelvis was unremarkable on 05/14/20. She has had long-standing problems with constipation and recurring abdominal pain with vomiting since childhood. Patient was positive for Chlamydia Trachomatis on 03/29/20. She does admit to currently having vaginal discharge. Onset: Today Past Medical History HEENT History: Reports: Impaired Vision, Other (See Below) Other HEENT History: Wears glasses. Cardiovascular History: Reports: Other (See Below) Other Cardiovascular History: States she runs a fast heart rate. Respiratory History: Reports: Asthma Other Respiratory History: Past history of asthma. Gastrointestinal History: Reports: GERD, Other (See Below) Other Gastrointestinal History: Recurrent abdominal pain and vomiting and constipation since childhood. 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 Musculoskeletal History: Reports: Other (See Below) Other Musculoskeletal History: Resless leg syndrome. Neurological History: Reports: Migraines Psychiatric History: Reports: Anxiety, Depression, PTSD, Other (See Below) Other Psychiatric History: Emotional and behavioral disorder. Dermatologic History: Reports: Other (See Below) Other Dermatologic History: States she has a concerning rash, not yet evaluated by MD. - Infectious Disease History Infectious Disease History: Reports: None - Past Surgical History HEENT Surgical History: Reports: Other (See Below) Other HEENT Surgeries/Procedures: [place] teeth extraction. Female Surgical History: Reports: Other (See Below) Other Female Surgeries/Procedures: Cyst on right ovary. Social & Family History - Family History Family Medical History: Noncontributory - Tobacco Use Tobacco Use Status *Q: Current Every Day Tobacco User Tobacco Use Within Last Twelve Months: Cigarettes - Caffeine Use Caffeine Use: Reports: None - Alcohol Use Alcohol Use History: Yes Alcohol Use in Last Twelve Months: Yes Alcohol Use Frequency: Socially - Recreational Drug Use Drug Use in Last 12 Months: Yes Recreational Drug Type: Reports: Marijuana/Hashish - Sexual History Sexual History: Reports: Sexually Active, Single Partner, Vaginal [place] - Living Situation & Occupation Living situation: Reports: with Significant Other Occupation: Employed ED ROS GENERAL - Review of Systems Review Of Systems: Comprehensive ROS is negative, except as noted in HPI. ED EXAM, GI/ABD - Physical Exam Exam: See Below Exam Limited By: No Limitations General Appearance: Alert, WD/WN, No Apparent Distress Eyes: Bilateral: Normal Appearance Ears: Normal External Exam Throat/Mouth: No Airway Compromise Head: Atraumatic, Normocephalic Neck: Full Range of Motion Respiratory/Chest: No Respiratory Distress, Lungs Clear, Normal Breath Sounds Cardiovascular: Regular Rate, Rhythm, No Murmur GI/Abdominal Exam: Normal Bowel Sounds, Soft, No Distention, Tender (suprapubic) Back Exam: Full Range of Motion Extremities: Normal Range of Motion Neurological: Alert, Oriented, Normal Cognition Psychiatric: Anxious Skin Exam: Warm, Dry, Intact Course - Vital Signs Last Recorded V/S: Last Vital Signs Temp 36.1 C 05/31/20 20:30 Pulse 65 05/31/20 20:30 Resp 15 05/31/20 20:30 BP 114/65 05/31/20 20:30 Pulse Ox 98 05/31/20 20:30 - Orders/Labs/Meds Orders: Active Orders 24 hr Category Date Time Status CHLAMYDIA/GC AMPLIFICATION Stat Lab 05/31/20 18:30 Received CULTURE URINE [RM] Stat Lab 05/31/20 18:30 Received Saline Lock Insert [OM.PC] Routine Oth 05/31/20 18:31 Ordered Labs: Laboratory Tests 05/31/20 05/31/20 05/31/20 Range/Units 18:30 18:30 18:30 WBC (4.5-12.0) X10-3/uL RBC (3.23-5.20) x10(6)uL Hgb (11.5-15.5) g/dL Hct (30.0-51.3) % MCV (80-96) fL MCH (27.7-33.6) pg MCHC (32.2-35.4) g/dL RDW (11.5-15.5) % Plt Count (125-369) X10(3)uL MPV (7.4-10.4) fL Neut % (Auto) (46-82) % Lymph % (Auto) (13-37) % [place] % (Auto) (4-12) % Eos % (Auto) (1.0-5.0) % Baso % (Auto) (0-2) % Neut # (Auto) (1.6-8.3) # Lymph # (Auto) (0.6-5.0) # [place] # (Auto) (0.0-1.3) # Eos # (Auto) (0.0-0.8) # Baso # (Auto) (0.0-0.2) # Sodium (135-145) mmol/L Potassium (3.5-5.3) mmol/L Chloride (100-110) mmol/L Carbon Dioxide (21-32) mmol/L BUN (7-18) mg/dL Creatinine (0.55-1.02) mg/dL Est Cr Clr Drug Dosing Estimated GFR (MDRD) (>60) BUN/Creatinine Ratio (9-20) Glucose (80-116) mg/dL Calcium (8.6-10.2) mg/dL Total Bilirubin (0.1-1.3) mg/dL AST (5-25) IU/L ALT (12-36) U/L Alkaline Phosphatase (56-112) IU/L Total Protein (6.0-8.0) g/dL Albumin (3.5-5.2) g/dL Globulin g/dL Albumin/Globulin Ratio Lipase (73-393) U/L Urine Color Yellow (YELLOW) Urine Appearance Clear (CLEAR) Urine pH 9.0 H (5.0-6.5) Ur Specific [place] 1.015 (1.010-1.025) Urine Protein Negative (NEGATIVE) mg/dL Urine Glucose (UA) Normal (NORMAL) mg/dL Urine Ketones Negative (NEGATIVE) mg/dL Urine Occult Blood Large H (NEGATIVE) Urine Nitrite Negative (NEGATIVE) Urine Bilirubin Negative (NEGATIVE) Urine Urobilinogen Normal (NEGATIVE) mg/dL Ur Leukocyte Esterase Negative (NEGATIVE) Urine RBC 0-5 (0-5) Urine WBC 5-10 H (0-5) Ur Squamous Epith Cells Moderate H (NS,R,O) Urine Bacteria Moderate H (NS) Urine HCG, Qual Negative (NEGATIVE) Urine Opiates Screen Negative (NEGATIVE) Ur Oxycodone Screen Negative (NEGATIVE) Ur Propoxyphene Screen Negative (NEGATIVE) Ur Barbituates Screen Negative (NEGATIVE) Ur Tricyclics Screen Negative (NEGATIVE) Ur Phencyclidine Scrn Negative (NEGATIVE) Ur Amphetamine Screen Negative (NEGATIVE) Urine MDMA Screen Negative (NEGATIVE) U Benzodiazepines Scrn Negative (NEGATIVE) U Cocaine Metab Screen Negative (NEGATIVE) U Marijuana (THC) Screen Positive H (NEGATIVE) 05/31/20 05/31/20 05/31/20 Range/Units 18:45 18:45 18:45 WBC 14.0 H (4.5-12.0) X10-3/uL RBC 4.88 (3.23-5.20) x10(6)uL Hgb 15.7 H (11.5-15.5) g/dL Hct 46.9 (30.0-51.3) % MCV 96.3 H (80-96) fL MCH 32.1 (27.7-33.6) pg MCHC 33.4 (32.2-35.4) g/dL RDW 14.0 (11.5-15.5) % Plt Count 225 (125-369) X10(3)uL MPV 8.4 (7.4-10.4) fL Neut % (Auto) 80.1 (46-82) % Lymph % (Auto) 11.0 L (13-37) % [place] % (Auto) 6.0 (4-12) % Eos % (Auto) 1 (1.0-5.0) % Baso % (Auto) 2 (0-2) % Neut # (Auto) 11.3 H (1.6-8.3) # Lymph # (Auto) 1.5 (0.6-5.0) # [place] # (Auto) 0.8 (0.0-1.3) # Eos # (Auto) 0.1 (0.0-0.8) # Baso # (Auto) 0.3 H (0.0-0.2) # Sodium 139 (135-145) mmol/L Potassium 3.3 L (3.5-5.3) mmol/L Chloride 103 (100-110) mmol/L Carbon Dioxide 24 (21-32) mmol/L BUN 10 (7-18) mg/dL Creatinine 0.9 (0.55-1.02) mg/dL Est Cr Clr Drug Dosing TNP Estimated GFR (MDRD) > 60 (>60) BUN/Creatinine Ratio 11.1 (9-20) Glucose 104 (80-116) mg/dL Calcium 9.2 (8.6-10.2) mg/dL Total Bilirubin 0.8 (0.1-1.3) mg/dL AST 11 D (5-25) IU/L ALT 13 D (12-36) U/L Alkaline Phosphatase 55 L (56-112) IU/L Total Protein 7.5 (6.0-8.0) g/dL Albumin 4.1 (3.5-5.2) g/dL Globulin 3.4 g/dL Albumin/Globulin Ratio 1.2 Lipase 73 (73-393) U/L Urine Color (YELLOW) Urine Appearance (CLEAR) Urine pH (5.0-6.5) Ur Specific [place] (1.010-1.025) Urine Protein (NEGATIVE) mg/dL Urine Glucose (UA) (NORMAL) mg/dL Urine Ketones (NEGATIVE) mg/dL Urine Occult Blood (NEGATIVE) Urine Nitrite (NEGATIVE) Urine Bilirubin (NEGATIVE) Urine Urobilinogen (NEGATIVE) mg/dL Ur Leukocyte Esterase (NEGATIVE) Urine RBC (0-5) Urine WBC (0-5) Ur Squamous Epith Cells (NS,R,O) Urine Bacteria (NS) Urine HCG, Qual (NEGATIVE) Urine Opiates Screen (NEGATIVE) Ur Oxycodone Screen (NEGATIVE) Ur Propoxyphene Screen (NEGATIVE) Ur Barbituates Screen (NEGATIVE) Ur Tricyclics Screen (NEGATIVE) Ur Phencyclidine Scrn (NEGATIVE) Ur Amphetamine Screen (NEGATIVE) Urine MDMA Screen (NEGATIVE) U Benzodiazepines Scrn (NEGATIVE) U Cocaine Metab Screen (NEGATIVE) U Marijuana (THC) Screen (NEGATIVE) Meds: Medications Discontinued Medications Generic Name Dose Route Start Last Admin Trade Name Freq PRN Reason Stop Dose Admin Ceftriaxone Sodium 250 mg 05/31/20 19:09 05/31/20 19:20 Rocephin IM 05/31/20 19:10 250 mg ONETIME ONE Administration Diphenhydramine HCl 50 mg 05/31/20 20:00 05/31/20 20:03 Benadryl IVPUSH 05/31/20 20:01 50 mg ONETIME ONE Administration Doxycycline Hyclate 100 mg 05/31/20 19:09 05/31/20 19:17 Vibra-Tabs PO 05/31/20 19:10 100 mg ONETIME ONE Administration Haloperidol Lactate 2.5 mg 05/31/20 19:10 05/31/20 19:16 Haldol IV 05/31/20 19:11 2.5 mg ONETIME ONE Administration Hydroxyzine HCl 50 mg 05/31/20 19:25 05/31/20 19:25 Vistaril IM 05/31/20 19:26 50 mg ONETIME ONE Administration Sodium Chloride 1,000 mls @ 999 mls/hr 05/31/20 18:31 05/31/20 18:43 Normal Saline IV 05/31/20 19:31 999 mls/hr .BOLUS ONE Administration Lorazepam 0.5 mg 05/31/20 18:59 05/31/20 19:07 Ativan IVPUSH 05/31/20 19:00 0.5 mg ONETIME ONE Administration Metoclopramide HCl 10 mg 05/31/20 18:32 05/31/20 18:41 Reglan IVPUSH 05/31/20 18:33 10 mg ONETIME ONE Administration Pantoprazole Sodium 40 mg 05/31/20 18:32 05/31/20 18:41 Protonix Iv IVPUSH 05/31/20 18:33 40 mg ONETIME ONE Administration Sodium Chloride 10 ml 05/31/20 18:31 05/31/20 20:03 Saline Flush FLUSH 10 ml ASDIRECTED PRN Administration Keep Vein Open - Re-Assessments/Exams Free Text/Narrative Re-Assessment/Exam: 05/31/20 18:55 Patient became more anxious (?due to Reglan), Ativan 0.5mg IV. 05/31/20 19:00 Patient care transferred to Dr. Church. Sepsis Event Note (ED) - Evaluation Sepsis Screening Result: No Definite Risk - Focused Exam Vital Signs: Vital Signs Temp Pulse Resp BP Pulse Ox 05/31/20 20:30 36.1 C 65 15 114/65 98 05/31/20 19:45 82 18 113/73 99 - My Orders Last 24 Hours: My Active Orders 05/31/20 18:30 CHLAMYDIA/GC AMPLIFICATION Stat 05/31/20 18:31 Saline Lock Insert [OM.PC] Routine - Assessment/Plan Last 24 Hours: My Active Orders 05/31/20 18:30 CHLAMYDIA/GC AMPLIFICATION Stat 05/31/20 18:31 Saline Lock Insert [OM.PC] Routine
[2020-05-31] MEDS ORDERED: LORazepam 2 MG/ML SDV IVPUSH ONE (18:59)
[2020-05-31] MEDS ORDERED: Doxycycline 100 MG Tab PO ONE (19:09)
[2020-05-31] MEDS ORDERED: Haloperidol Lactate 5 MG/ML SDV IV ONE (19:10)
[2020-05-31] MEDS: cefTRIAXone 250 MG Vial IM ONE ×3 (19:17→19:20)
[2020-05-31] MEDS: Sodium Chloride 0.9% 10 ML Syringe FLUSH PRN ×2 (19:20→20:03)
[2020-05-31] MEDS ORDERED: hydrOXYzine HCl 50 MG/ML SDV IM ONE (19:25)
[2020-05-31] MEDS ORDERED: diphenhydrAMINE 50 MG/ML SDV IVPUSH ONE (20:00)
[2020-05-31 22:36] VITALS: BP 114/65; PULSE 65
[2020-06-04 11:11] LABS: CHLAMYDIA TRACHOMATIS, NAA Negative (Negative); NEISSERIA GONORRHOEAE, NAA Negative (Negative)
== END 2020-05-31 20:40 | disposition home or self-care (01) ==
LOC: FB.ED 17:40
DX: R11.2 Nausea with vomiting, unspecified (principal); F12.90 Cannabis use, unspecified, uncomplicated; R10.84 Generalized abdominal pain; N89.8 Other specified noninflammatory disorders of vagina; J45.909 Unspecified asthma, uncomplicated; F17.210 Nicotine dependence, cigarettes, uncomplicated; Z88.2 Allergy status to sulfonamides; Z79.899 Other long term (current) drug therapy
CPT/HCPCS: 80053; 80305; 81001; 81025; 83690; 85025; 87086; 87491; 87591; 96372; 96374; 96375; 99284; A9270; C9113; J0696; J1200; J1630; J2060; J2765; J3410; J7030; 36415

== ENCOUNTER 2021-05-28 23:01 | Emergency (ER) | payer SELFPAY ==
[2021-05-28] MEDS ORDERED: Sodium Chloride 0.9% 10 ML Syringe FLUSH PRN (23:08)
[2021-05-28] MEDS ORDERED: Ketorolac 30 MG/ML SDV IVPUSH STA (23:09)
[2021-05-28] MEDS ORDERED: Cyclobenzaprine 10 MG Tab PO STA (23:09)
[2021-05-28] MEDS ORDERED: LORazepam 2 MG/ML SDV IVPUSH STA (23:09)
[2021-05-29] MEDS ORDERED: Ondansetron 4 MG/2 ML SDV IVPUSH STA (00:08)
[2021-05-29] MEDS ORDERED: Potassium Chloride 20 MEQ Tab.ER PO ONE (00:09)
--- NOTE | 2021-05-29 00:26 | EDM.PDOC ---
ED HPI GENERAL MEDICAL PROBLEM - General Chief Complaint: Upper Extremity Injury/Pain Stated Complaint: PAIN IN RIGHT ARM Time Seen by Provider: 05/29/21 00:20 History Limitations: Reports: No Limitations - History of Present Illness INITIAL COMMENTS - FREE TEXT/NARRATIVE: Patient presented to the ED because of bilateral hand spasm which started tonight. She had this in the past and it resolved on it's own. There is no N/V/D. No fever, chills, headache or neck stiffness. - Related Data Allergies Allergy/AdvReac Type Severity Reaction Status Date / Time Sulfa (Sulfonamide Allergy Hives Verified 05/31/20 18:15 Antibiotics) Home Meds: Home Meds Cyclobenzaprine [Flexeril] 10 mg PO TID PRN #15 tab 05/29/21 [Rx] Potassium Chloride [Klor-Con M20] 40 meq PO TID #12 tab.er 05/29/21 [Rx] Past Medical History HEENT History: Reports: Impaired Vision, Other (See Below) Other HEENT History: Wears glasses. Cardiovascular History: Reports: Other (See Below) Other Cardiovascular History: States she runs a fast heart rate. Respiratory History: Reports: Asthma Other Respiratory History: Past history of asthma. Gastrointestinal History: Reports: GERD, Other (See Below) Other Gastrointestinal History: Recurrent abdominal pain and vomiting and constipation since childhood. 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 Musculoskeletal History: Reports: Other (See Below) Other Musculoskeletal History: Resless leg syndrome. Neurological History: Reports: Migraines Psychiatric History: Reports: Anxiety, Depression, PTSD, Other (See Below) Other Psychiatric History: Emotional and behavioral disorder. Dermatologic History: Reports: Other (See Below) Other Dermatologic History: States she has a concerning rash, not yet evaluated by MD. - Infectious Disease History Infectious Disease History: Reports: None - Past Surgical History HEENT Surgical History: Reports: Other (See Below) Other HEENT Surgeries/Procedures: [place] teeth extraction. Female Surgical History: Reports: Other (See Below) Other Female Surgeries/Procedures: Cyst on right ovary. Social & Family History - Family History Family Medical History: No Pertinent Family History - Caffeine Use Caffeine Use: Reports: None - Sexual History Sexual History: Reports: Sexually Active, Single Partner, Vaginal [place] - Living Situation & Occupation Living situation: Reports: with Significant Other Occupation: Employed Review of Systems - Review of Systems Review Of Systems: See Below Constitutional: Reports: No Symptoms Eyes: Reports: No Symptoms Ears: Reports: No Symptoms Nose: Reports: No Symptoms Mouth/Throat: Reports: No Symptoms Respiratory: Reports: No Symptoms Cardiovascular: Reports: No Symptoms GI/Abdominal: Reports: Other Musculoskeletal: Reports: Hand Pain, Muscle Pain Skin: Reports: No Symptoms Neurological: Reports: No Symptoms Psychiatric: Reports: No Symptoms ED EXAM, GENERAL - Physical Exam Exam: See Below Exam Limited By: No Limitations General Appearance: Alert, No Apparent Distress Ears: Normal External Exam, Normal Canal Nose: Normal Inspection, Normal Mucosa, No Blood Throat/Mouth: Normal Inspection, Normal Lips, Normal Teeth, Normal Gums, Normal Oropharynx, Normal Voice Head: Atraumatic, Normocephalic Neck: Normal Inspection, Supple, Non-Tender, Full Range of Motion Respiratory/Chest: No Respiratory Distress, Lungs Clear, Normal Breath Sounds, Chest Non-Tender Cardiovascular: Normal Peripheral Pulses, Regular Rate, Rhythm, No Edema, No Gallop, No JVD, No Murmur, No Rub GI/Abdominal: Normal Bowel Sounds, Soft, Non-Tender, No Organomegaly, No Distention, No Abnormal Bruit, No Mass Back Exam: Normal Inspection, Full Range of Motion Extremities: Normal Inspection, Normal Range of Motion, Non-Tender, No Pedal Edema, Normal Capillary Refill, Other (hand spasm-bilateral) Neurological: Alert, Oriented, CN II-XII Intact Course - Vital Signs Text/Narrative:: Lab result was reviewed and discussed with patient Ativan1 mg IV x1 Toradol 30 mg IV x1 Zofran 4 mg IV x1 Flexeril 10 mg PO x1 Klor Con 40 meq PO x1 - Orders/Labs/Meds Orders: Active Orders 24 hr Category Date Time Status Sodium Chloride 0.9% [Saline Flush] Med 05/28/21 23:08 Active 10 ml FLUSH ASDIRECTED PRN Saline Lock Insert [OM.PC] Routine Oth 05/28/21 23:08 Ordered Medication Orders Sodium Chloride (Sodium Chloride 0.9% 10 Ml Syringe) 10 ml FLUSH ASDIRECTED PRN PRN Reason: Keep Vein Open Last Admin: 05/29/21 00:15 Dose: 10 ml Documented by: BENJAMIN Labs: Laboratory Tests 05/28/21 05/28/21 Range/Units 23:24 23:24 WBC 8.9 (3.0-10.3) x10-3/uL RBC 4.94 (3.60-5.20) x10(6)uL Hgb 16.2 H (11.4-15.5) g/dL Hct 48.4 H (34.2-48.2) % MCV 97.9 (76.7-100.5) fL MCH 32.7 (23.9-33.9) pg MCHC 33.5 (31.9-34.8) g/dL RDW 14.7 (12.3-16.5) % Plt Count 217 (151-488) x10(3)uL MPV 7.9 (7.1-12.4) fL Neut % (Auto) 71.7 (30.8-76.2) % Lymph % (Auto) 17.7 L (18.4-52.1) % [place] % (Auto) 8.1 (4.4-15.7) % Eos % (Auto) 1.8 (0.6-8.1) % Baso % (Auto) 0.7 (0.2-1.5) % Neut # (Auto) 6.4 H (1.5-6.3) x10-3/uL Lymph # (Auto) 1.6 (1.0-4.4) x10-3/uL [place] # (Auto) 0.7 (0.3-1.0) x10-3/uL Eos # (Auto) 0.2 (0.0-0.8) x10-3/uL Baso # (Auto) 0.1 (0.0-0.1) x10-3/uL Sodium 140 (135-145) mmol/L Potassium 3.0 L (3.5-5.3) mmol/L Chloride 101 (100-110) mmol/L Carbon Dioxide 25 (21-32) mmol/L BUN 7 (7-18) mg/dL Creatinine 0.9 (0.55-1.02) mg/dL Est Cr Clr Drug Dosing TNP Estimated GFR (MDRD) > 60 (>60) BUN/Creatinine Ratio 7.8 L (9-20) Glucose 92 (80-116) mg/dL Calcium 9.0 (8.6-10.2) mg/dL Magnesium 1.8 (1.8-2.5) mg/dL Meds: Medications Generic Name Dose Route Start Last Admin Trade Name Chintan PRN Reason Stop Dose Admin Sodium Chloride 10 ml 05/28/21 23:08 05/29/21 00:15 Sodium Chloride 0.9% 10 Ml Syringe FLUSH 10 ml ASDIRECTED PRN Administration Keep Vein Open Discontinued Medications Generic Name Dose Route Start Last Admin Trade Name Chintan PRN Reason Stop Dose Admin Cyclobenzaprine HCl 10 mg 05/28/21 23:09 05/29/21 00:30 Cyclobenzaprine 10 Mg Tab PO 05/28/21 23:10 10 mg NOW STA Administration Ketorolac Tromethamine 30 mg 05/28/21 23:09 05/29/21 00:20 Ketorolac 30 Mg/Ml Sdv IVPUSH 05/28/21 23:10 30 mg NOW STA Administration Lorazepam 1 mg 05/28/21 23:09 05/29/21 00:25 Lorazepam 2 Mg/Ml Sdv IVPUSH 05/28/21 23:10 1 mg NOW STA Administration Ondansetron HCl 4 mg 05/29/21 00:08 05/29/21 00:20 Ondansetron 4 Mg/2 Ml Sdv IVPUSH 05/29/21 00:09 4 mg NOW STA Administration Potassium Chloride 40 meq 05/29/21 00:09 05/29/21 00:31 Potassium Chloride 20 Meq Tab.Er PO 05/29/21 00:10 40 meq ONETIME ONE Administration Departure - Departure Time of Disposition: 13:00 Disposition: Home, Self-Care 01 Condition: Good Clinical Impression: Hypokalemia, Spasms of the hands or feet - Discharge Information Prescriptions: Cyclobenzaprine [Flexeril] 10 mg PO TID PRN #15 tab PRN Reason: Spasms Potassium Chloride [Klor-Con M20] 40 meq PO TID #12 tab.er Instructions: Muscle Cramps and Spasms, Hypokalemia Referrals: PCP,None [Primary Care Provider] - Forms: ED Department Discharge Additional Instructions: Please read discharge instructions on low potassium and hand spasm Klor con 20 meq, 2 tablets 3 times daily for 3 days Flexeril 10 mg 3 times daily as needed for spasms Follow up as needed - My Orders Last 24 Hours: My Active Orders 05/28/21 23:08 Sodium Chloride 0.9% [Saline Flush] 10 ml FLUSH ASDIRECTED PRN Saline Lock Insert [OM.PC] Routine - Assessment/Plan Last 24 Hours: My Active Orders 05/28/21 23:08 Sodium Chloride 0.9% [Saline Flush] 10 ml FLUSH ASDIRECTED PRN Saline Lock Insert [OM.PC] Routine
[2021-05-29 03:29] VITALS: BP 123/65; PULSE 80
== END 2021-05-29 00:50 | disposition home or self-care (01) ==
LOC: FB.ED 23:01
DX: R25.2 Cramp and spasm (principal); E87.6 Hypokalemia; K21.9 Gastro-esophageal reflux disease without esophagitis; Z88.2 Allergy status to sulfonamides; Z79.899 Other long term (current) drug therapy
CPT/HCPCS: 36415; 80048; 83735; 85025; 96374; 96375; 99283-25; A9270-GY; J1885; J2060; J2405

== ENCOUNTER 2021-06-18 15:15 | Emergency (ER) | payer SELFPAY ==
[2021-06-18 15:46] VITALS: BP 128/87
[2021-06-18] MEDS ORDERED: Sodium Chloride 0.9% 10 ML Syringe FLUSH PRN (15:59)
[2021-06-18] MEDS ORDERED: Ketorolac 30 MG/ML SDV IVPUSH STA (16:00)
[2021-06-18] MEDS ORDERED: Cyclobenzaprine 10 MG Tab PO STA (16:00)
[2021-06-18] MEDS ORDERED: Sodium Chloride 0.9% 1,000 ML IV SCH (16:00)
[2021-06-18] MEDS ORDERED: Ondansetron 4 MG/2 ML SDV IVPUSH STA (16:00)
--- NOTE | 2021-06-18 16:21 | EDM.PDOC ---
ED HPI GENERAL MEDICAL PROBLEM - General Chief Complaint: Abdominal Pain Stated Complaint: ABD PAIN Time Seen by Provider: 06/18/21 15:45 Source of Information: Reports: Patient History Limitations: Reports: No Limitations - History of Present Illness INITIAL COMMENTS - FREE TEXT/NARRATIVE: Patient presented to the ED because of headache,N/V which started at 3 am. The pain is throbbing,7/10 and vomited several times. She also have lo grade fever, cough, chills and abdominal cramps after retching and vomiting. She was exposed to a co-worker who tested positive for Covid. 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(s) Other Treatments WELL FLOW OPERATOR: flexeril Generalized Pain Score (Numeric/FACES): 4 - Related Data Allergies Allergy/AdvReac Type Severity Reaction Status Date / Time haloperidol [From Haldol] Allergy Other Verified 06/18/21 15:42 Sulfa (Sulfonamide Allergy Hives Verified 06/18/21 15:42 Antibiotics) Home Meds: Home Meds Cyclobenzaprine [Flexeril] 10 mg PO TID PRN #15 tab 05/29/21 [Rx] Potassium Chloride [Klor-Con M20] 40 meq PO TID #12 tab.er 05/29/21 [Rx] Ibuprofen 800 mg PO Q8H PRN #30 tablet 06/18/21 [Rx] hydrOXYzine pamoate [Vistaril] 50 mg PO Q6H PRN #30 cap 06/18/21 [Rx] Past Medical History HEENT History: Reports: Impaired Vision, Other (See Below) Other HEENT History: Wears glasses. Cardiovascular History: Reports: Other (See Below) Other Cardiovascular History: States she runs a fast heart rate. Respiratory History: Reports: Asthma Other Respiratory History: Past history of asthma. Gastrointestinal History: Reports: GERD, Other (See Below) Other Gastrointestinal History: Recurrent abdominal pain and vomiting and constipation since childhood. 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 Musculoskeletal History: Reports: Other (See Below) Other Musculoskeletal History: Resless leg syndrome. Neurological History: Reports: Migraines Psychiatric History: Reports: Anxiety, Depression, PTSD, Other (See Below) Other Psychiatric History: Emotional and behavioral disorder. Endocrine/Metabolic History: Reports: None Oncologic (Cancer) History: Reports: None Dermatologic History: Reports: Other (See Below) Other Dermatologic History: States she has a concerning rash, not yet evaluated by MD. - Infectious Disease History Infectious Disease History: Reports: None - Past Surgical History HEENT Surgical History: Reports: Other (See Below) Other HEENT Surgeries/Procedures: [place] teeth extraction. Female Surgical History: Reports: Other (See Below) Other Female Surgeries/Procedures: Cyst on right ovary. Social & Family History - Family History Family Medical History: No Pertinent Family History - Tobacco Use Years of Tobacco use: 7 Packs/Tins Daily: 1 - Caffeine Use Caffeine Use: Reports: None - Recreational Drug Use Recreational Drug Use: Yes Recreational Drug Type: Reports: Marijuana/Hashish Recreational Drug Use Frequency: Daily - Sexual History Sexual History: Reports: Sexually Active, Single Partner, Vaginal [place] - Living Situation & Occupation Living situation: Reports: with Significant Other Occupation: Employed ED ROS GENERAL - Review of Systems Review Of Systems: See Below Constitutional: Reports: Fever, Chills, Malaise HEENT: Reports: No Symptoms Respiratory: Reports: Cough Cardiovascular: Reports: No Symptoms Endocrine: Reports: No Symptoms GI/Abdominal: Reports: Abdominal Pain, Nausea, Vomiting : Reports: No Symptoms Musculoskeletal: Reports: No Symptoms Skin: Reports: No Symptoms Neurological: Reports: No Symptoms Psychiatric: Reports: No Symptoms ED EXAM, GENERAL - Physical Exam Exam: See Below Exam Limited By: No Limitations General Appearance: Alert, No Apparent Distress Eye Exam: Bilateral Eye: PERRL Ears: Normal External Exam, Normal Canal, Normal TMs Nose: Normal Inspection, Normal Mucosa, No Blood Throat/Mouth: Normal Inspection, Normal Lips, Normal Teeth, Normal Gums, Normal Oropharynx, Normal Voice Head: Atraumatic, Normocephalic Neck: Normal Inspection, Supple, Non-Tender, Full Range of Motion Respiratory/Chest: No Respiratory Distress, Lungs Clear, Normal Breath Sounds, No Accessory Muscle Use, Chest Non-Tender Cardiovascular: Normal Peripheral Pulses, Regular Rate, Rhythm, No Edema, No Gallop, No JVD, No Murmur, No Rub GI/Abdominal: Normal Bowel Sounds, Soft, No Organomegaly, No Distention, No Abnormal Bruit, No Mass, Other (epigastric tenderness) Back Exam: Normal Inspection, Full Range of Motion Extremities: Normal Inspection, Normal Range of Motion, Non-Tender, No Pedal Edema, Normal Capillary Refill Neurological: Alert, Oriented, CN II-XII Intact, Normal Cognition, Normal Reflexes Psychiatric: Anxious Skin Exam: Warm Course - Vital Signs Text/Narrative:: Lab result was reviewed and discussed with patient NS 1 L bolus Toradol 30 mg IV x1 Zofran ODT 4 mg PO x1 Phenergan 25 mg IM x1 Covid-positive Last Recorded V/S: Last Vital Signs Temp 36.6 C 06/18/21 15:43 Pulse 83 06/18/21 15:43 Resp 18 06/18/21 15:43 BP 128/87 06/18/21 15:43 Pulse Ox 97 06/18/21 15:43 - Orders/Labs/Meds Orders: Active Orders 24 hr Category Date Time Status Sodium Chloride 0.9% [Normal Saline] 1,000 ml Med 06/18/21 16:00 Active IV ASDIRECTED Sodium Chloride 0.9% [Saline Flush] Med 06/18/21 15:59 Active 10 ml FLUSH ASDIRECTED PRN Isolation [COMM] Routine Oth 06/18/21 15:59 Ordered Saline Lock Insert [OM.PC] Routine Oth 06/18/21 15:59 Ordered Medication Orders Sodium Chloride (Normal Saline) 1,000 mls @ 999 mls/hr IV ASDIRECTED [facility] Last Admin: 06/18/21 16:10 Dose: 999 mls/hr Documented by: JENN Sodium Chloride (Sodium Chloride 0.9% 10 Ml Syringe) 10 ml FLUSH ASDIRECTED PRN PRN Reason: Keep Vein Open Labs: Laboratory Tests 06/18/21 06/18/21 06/18/21 Range/Units 16:38 16:38 16:38 WBC 3.3 (3.0-10.3) x10-3/uL RBC 5.15 (3.60-5.20) x10(6)uL Hgb 16.8 H (11.4-15.5) g/dL Hct 50.2 H (34.2-48.2) % MCV 97.5 (76.7-100.5) fL MCH 32.6 (23.9-33.9) pg MCHC 33.4 (31.9-34.8) g/dL RDW 14.9 (12.3-16.5) % Plt Count 159 (151-488) x10(3)uL MPV 8.9 (7.1-12.4) fL Neut % (Auto) 55.5 (30.8-76.2) % Lymph % (Auto) 27.1 (18.4-52.1) % [place] % (Auto) 15.6 (4.4-15.7) % Eos % (Auto) 1.0 (0.6-8.1) % Baso % (Auto) 0.8 (0.2-1.5) % Neut # (Auto) 1.8 (1.5-6.3) x10-3/uL Lymph # (Auto) 0.9 L (1.0-4.4) x10-3/uL [place] # (Auto) 0.5 (0.3-1.0) x10-3/uL Eos # (Auto) 0.0 (0.0-0.8) x10-3/uL Baso # (Auto) 0.0 (0.0-0.1) x10-3/uL Sodium 141 (135-145) mmol/L Potassium 3.3 L (3.5-5.3) mmol/L Chloride 103 (100-110) mmol/L Carbon Dioxide 28 (21-32) mmol/L BUN 7 (7-18) mg/dL Creatinine 0.7 (0.55-1.02) mg/dL Est Cr Clr Drug Dosing 113.43 mL/min Estimated GFR (MDRD) > 60 (>60) BUN/Creatinine Ratio 10.0 (9-20) Glucose 79 L (80-116) mg/dL Calcium 8.4 L (8.6-10.2) mg/dL SARS-CoV-2 RNA (ARLET) Positive H (NEGATIVE) Meds: Medications Generic Name Dose Route Start Last Admin Trade Name Freq PRN Reason Stop Dose Admin Sodium Chloride 1,000 mls @ 999 mls/hr 06/18/21 16:00 06/18/21 16:10 Normal Saline IV 999 mls/hr ASDIRECTED [place] Administration Sodium Chloride 10 ml 06/18/21 15:59 Sodium Chloride 0.9% 10 Ml Syringe FLUSH ASDIRECTED PRN Keep Vein Open Discontinued Medications Generic Name Dose Route Start Last Admin Trade Name Freq PRN Reason Stop Dose Admin Cyclobenzaprine HCl 10 mg 06/18/21 16:00 Cyclobenzaprine 10 Mg Tab PO 06/18/21 16:01 NOW STA Ketorolac Tromethamine 30 mg 06/18/21 16:00 06/18/21 16:30 Ketorolac 30 Mg/Ml Sdv IVPUSH 06/18/21 16:01 30 mg NOW STA Administration Ondansetron HCl 4 mg 06/18/21 16:00 06/18/21 16:30 Ondansetron 4 Mg/2 Ml Sdv IVPUSH 06/18/21 16:01 4 mg NOW STA Administration Potassium Chloride 40 meq 06/18/21 18:09 Potassium Chloride 20 Meq Tab.Er PO 06/18/21 18:10 NOW STA Promethazine HCl 25 mg 06/18/21 18:13 Promethazine 25 Mg/Ml Sdv IM 06/18/21 18:14 NOW STA Departure - Departure Time of Disposition: 16:30 Disposition: Home, Self-Care 01 Condition: Good Clinical Impression: COVID-19 virus infection, Migraine, Hypokalemia - Discharge Information Prescriptions: Ibuprofen 800 mg PO Q8H PRN #30 tablet PRN Reason: Pain hydrOXYzine pamoate [Vistaril] 50 mg PO Q6H PRN #30 cap PRN Reason: Nausea Instructions: COVID-19 Frequently Asked Questions, Hypokalemia, Chronic Migraine Headache, [id number] Referrals: PCP,None [Primary Care Provider] - Forms: ED Department Discharge Additional Instructions: Please read discharge instructions on Covid infection, Migraine and low potassium Drink at least 2 liters of water daily Take 1 tablet each of Vit C,D,Zinc Vistaril 50 mg every 6 hours as needed for nausea/anxiety and sleep Klor con 20 meq take 2 tablets every 2 hours for 2 doses Follow up as needed Sepsis Event Note (ED) - Evaluation Sepsis Screening Result: No Definite Risk - Focused Exam Vital Signs: Vital Signs Temp Pulse Resp BP Pulse Ox 06/18/21 15:43 36.6 C 83 18 128/87 97 - My Orders Last 24 Hours: My Active Orders 06/18/21 15:59 Sodium Chloride 0.9% [Saline Flush] 10 ml FLUSH ASDIRECTED PRN Isolation [COMM] Routine Saline Lock Insert [OM.PC] Routine 06/18/21 16:00 Sodium Chloride 0.9% [Normal Saline] 1,000 ml IV ASDIRECTED - Assessment/Plan Last 24 Hours: My Active Orders 06/18/21 15:59 Sodium Chloride 0.9% [Saline Flush] 10 ml FLUSH ASDIRECTED PRN Isolation [COMM] Routine Saline Lock Insert [OM.PC] Routine 06/18/21 16:00 Sodium Chloride 0.9% [Normal Saline] 1,000 ml IV ASDIRECTED
[2021-06-18] MEDS ORDERED: Potassium Chloride 20 MEQ Tab.ER PO STA (18:09)
[2021-06-18] MEDS ORDERED: Promethazine 25 MG/ML SDV IM STA (18:13)
[2021-06-18 19:13] VITALS: PULSE 65
== END 2021-06-18 18:40 | disposition home or self-care (01) ==
LOC: FB.ED 15:15
DX: U07.1 COVID-19 (principal); G43.909 Migraine, unspecified, not intractable, without status migrainosus; E87.6 Hypokalemia; J45.909 Unspecified asthma, uncomplicated; Z72.0 Tobacco use; Z88.8 Allergy status to other drugs, medicaments and biological substances; Z88.2 Allergy status to sulfonamides; Z79.899 Other long term (current) drug therapy
CPT/HCPCS: 36415; 80048; 85025; 87635; 87804; 96372; 96374; 96375; 99284; A9270; J1885; J2405; J2550; J7030; U0002

== ENCOUNTER 2021-06-18 20:01 | Emergency (ER) | payer SELFPAY ==
[2021-06-18] MEDS ORDERED: Ondansetron 4 MG/2 ML SDV IM ONE (20:25)
[2021-06-18] MEDS ORDERED: LORazepam 2 MG/ML SDV IM ONE (20:25)
--- NOTE | 2021-06-18 20:29 | EDM.PDOC ---
ED HPI GENERAL MEDICAL PROBLEM - General Stated Complaint: COVID SYMPTOMS Time Seen by Provider: 06/18/21 20:26 Source of Information: Reports: Patient History Limitations: Reports: No Limitations - History of Present Illness INITIAL COMMENTS - FREE TEXT/NARRATIVE: Manda was here earlier and diagnosed with COVID-19. She returns because of severe nausea,spasms of hands and muscles of the hand.She is unable to keep anything down. Earlier,she was given IVF,Zofran and Vistaril,along with other antiemetics. Bilat hands Pain Score (Numeric/FACES): 10 - Related Data Allergies Allergy/AdvReac Type Severity Reaction Status Date / Time haloperidol [From Haldol] Allergy Other Verified 06/18/21 20:33 Sulfa (Sulfonamide Allergy Hives Verified 06/18/21 20:33 Antibiotics) Home Meds: Home Meds Cyclobenzaprine [Flexeril] 10 mg PO TID PRN #15 tab 05/29/21 [Rx] Potassium Chloride [Klor-Con M20] 40 meq PO TID #12 tab.er 05/29/21 [Rx] Ibuprofen 800 mg PO Q8H PRN #30 tablet 06/18/21 [Rx] hydrOXYzine pamoate [Vistaril] 50 mg PO Q6H PRN #30 cap 06/18/21 [Rx] Past Medical History HEENT History: Reports: Impaired Vision, Other (See Below) Other HEENT History: Wears glasses. Cardiovascular History: Reports: Other (See Below) Other Cardiovascular History: States she runs a fast heart rate. Respiratory History: Reports: Asthma Other Respiratory History: Past history of asthma. Gastrointestinal History: Reports: GERD, Other (See Below) Other Gastrointestinal History: Recurrent abdominal pain and vomiting and constipation since childhood. 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 Musculoskeletal History: Reports: Other (See Below) Other Musculoskeletal History: Resless leg syndrome. Neurological History: Reports: Migraines Psychiatric History: Reports: Anxiety, Depression, PTSD, Other (See Below) Other Psychiatric History: Emotional and behavioral disorder. Endocrine/Metabolic History: Reports: None Oncologic (Cancer) History: Reports: None Dermatologic History: Reports: Other (See Below) Other Dermatologic History: States she has a concerning rash, not yet evaluated by MD. - Infectious Disease History Infectious Disease History: Reports: None - Past Surgical History HEENT Surgical History: Reports: Other (See Below) Other HEENT Surgeries/Procedures: [place] teeth extraction. Female Surgical History: Reports: Other (See Below) Other Female Surgeries/Procedures: Cyst on right ovary. Social & Family History - Family History Family Medical History: No Pertinent Family History - Caffeine Use Caffeine Use: Reports: None - Sexual History Sexual History: Reports: Sexually Active, Single Partner, Vaginal [place] - Living Situation & Occupation Living situation: Reports: with Significant Other Occupation: Employed ED ROS GENERAL - Review of Systems Review Of Systems: Comprehensive ROS is negative, except as noted in HPI. ED EXAM, GENERAL - Physical Exam Exam: See Below Exam Limited By: No Limitations General Appearance: Anxious, Other (Tearful) Head: Atraumatic Neck: Normal Inspection Respiratory/Chest: No Respiratory Distress, No Accessory Muscle Use Cardiovascular: Normal Peripheral Pulses Extremities: Other (spamstic small hadn muscles) Psychiatric: Anxious, Tearful Skin Exam: Warm Course - Vital Signs Last Recorded V/S: Last Vital Signs Temp 97.7 F 06/18/21 20:01 Pulse 63 06/18/21 20:01 Resp 24 H 06/18/21 20:01 BP 120/91 H 06/18/21 20:01 Pulse Ox 99 06/18/21 20:01 - Orders/Labs/Meds Meds: Medications Discontinued Medications Generic Name Dose Route Start Last Admin Trade Name Freq PRN Reason Stop Dose Admin Lorazepam 1 mg 06/18/21 20:25 06/18/21 20:36 Lorazepam 2 Mg/Ml Sdv IM 06/18/21 20:26 1 mg ONETIME ONE Administration Ondansetron HCl 4 mg 06/18/21 20:25 06/18/21 20:37 Ondansetron 4 Mg/2 Ml Sdv IM 06/18/21 20:26 4 mg ONETIME ONE Administration Departure - Departure Time of Disposition: 20:57 Disposition: Home, Self-Care 01 Clinical Impression: Anxiety, COVID-19 virus infection - Discharge Information Sepsis Event Note (ED) - Focused Exam Vital Signs: Vital Signs Temp Pulse Resp BP Pulse Ox 06/18/21 20:01 97.7 F 63 24 H 120/91 H 99 - Problem List & Annotations (1) Anxiety SNOMED Code(s): 38282009 Code(s): F41.9 - ANXIETY DISORDER, UNSPECIFIED Status: Acute Current Visit: No (2) Nausea & vomiting SNOMED Code(s): 49063849 Code(s): R11.2 - NAUSEA WITH VOMITING, UNSPECIFIED Status: Acute Current Visit: No (3) COVID-19 virus infection SNOMED Code(s): 268206764 Code(s): U07.1 - COVID-19 Status: Acute Current Visit: No - Problem List Review Problem List Initiated/Reviewed/Updated: Yes - Assessment/Plan Plan: Lorazepam and Zofran IM. See PCP tomorrow
[2021-06-18 22:33] VITALS: BP 109/61; PULSE 84
== END 2021-06-18 21:11 | disposition home or self-care (01) ==
LOC: FB.ED 20:01
DX: U07.1 COVID-19 (principal); F41.9 Anxiety disorder, unspecified; Z88.5 Allergy status to narcotic agent; Z88.2 Allergy status to sulfonamides
CPT/HCPCS: 96372; 99283; J2060; J2405

== ENCOUNTER 2022-07-25 16:55 | Emergency (ER) | payer SELFPAY ==
[2022-07-25] MEDS ORDERED: Ondansetron 4 MG Tab.DIS PO ONE (16:56)
[2022-07-25] MEDS ORDERED: Ondansetron 4 MG/2 ML SDV IVPUSH ONE (17:16)
[2022-07-25] MEDS ORDERED: Sodium Chloride 0.9% 1,000 ML IV SCH (17:30)
[2022-07-25 17:35] LABS: ESTIMATED GFR 125 mL/min (>60)
[2022-07-25 20:12] VITALS: BP 106/61; PULSE 74
== END 2022-07-25 18:41 | disposition home or self-care (01) ==
LOC: FB.ED 16:55
DX: R11.2 Nausea with vomiting, unspecified (principal); R10.9 Unspecified abdominal pain; Z88.2 Allergy status to sulfonamides; Z88.8 Allergy status to other drugs, medicaments and biological substances
CPT/HCPCS: 36415; 80053; 81001; 84702; 85025; 96361; 96374; 99284; J2405; J7030; Q0162

== ENCOUNTER 2024-06-18 02:03 | Emergency (ER) | payer SELFPAY ==
[2024-06-18] MEDS ORDERED: Ketorolac 30 MG/ML SDV IM ONE (02:24)
[2024-06-18] MEDS: Ketorolac 30 MG/ML SDV IVPUSH ONE (02:38)
[2024-06-18] MEDS: Ondansetron 4 MG/2 ML SDV IVPUSH ONE (02:38)
[2024-06-18 02:58] LABS: BASOPHILS ABSOLUTE AUTO 0.1 x10-3/uL (0.0-0.1); BASOPHILS PERCENT AUTO 1.1 % (0.2-1.5); EOSINOPHILS ABSOLUTE AUTO 0.1 x10-3/uL (0.0-0.8); EOSINOPHILS PERCENT AUTO 1.8 % (0.6-8.1); HEMATOCRIT 47.1 % (34.2-48.2); HEMOGLOBIN 16.1 g/dL (11.4-15.5); LYMPHOCYTES ABSOLUTE AUTO 1.3 x10-3/uL (1.0-4.4); LYMPHOCYTES PERCENT AUTO 16.1 % (18.4-52.1); MEAN CORPUSCULAR HEMOGLOBIN 38.5 pg (23.9-33.9); MEAN CORPUSCULAR HGB CONC 34.2 g/dL (31.9-34.8); MEAN PLATELET VOLUME 8.4 fL (7.1-12.4); MONOCYTES ABSOLUTE AUTO 0.4 x10-3/uL (0.3-1.0); MONOCYTES PERCENT AUTO 5.4 % (4.4-15.7); NEUTROPHILS PERCENT AUTO 75.6 % (30.8-76.2); PLATELET COUNT,PLT 248 x10(3)uL (151-488); RED BLOOD CELL COUNT 4.18 x10(6)uL (3.60-5.20); RED CELL DISTRIBUTION WIDTH 13.8 % (12.3-16.5); WHITE BLOOD CELL COUNT,WBC 7.9 x10-3/uL (3.0-10.3)
[2024-06-18 03:00] LABS: BLOOD UREA NITROGEN,BUN 5 mg/dL (7-18); BUN/CREATININE RATIO 5.6 (9-20); CALCIUM 9.1 mg/dL (8.6-10.2); CARBON DIOXIDE,CO2 25 mmol/L (21-32); CHLORIDE,CL 104 mmol/L (100-110); CREATININE 0.9 mg/dL (0.55-1.02); ESTIMATED GFR 91 mL/min (>60); GLUCOSE RANDOM 122 mg/dL (80-116); POTASSIUM,K 3.4 mmol/L (3.5-5.3); SODIUM,NA 141 mmol/L (135-145)
[2024-06-18 03:01] LABS: BILIRUBIN,URINE NEGATIVE (NEGATIVE); GLUCOSE,URINE NORMAL (NORMAL); KETONES,URINE NEGATIVE (NEGATIVE); LEUKOCYTE ESTERASE,URINE NEGATIVE (NEGATIVE); NITRITE,URINE NEGATIVE (NEGATIVE); OCCULT BLOOD,URINE NEGATIVE (NEGATIVE); PROTEIN,URINE NEGATIVE (NEGATIVE); UROBILINOGEN,URINE 1 mg/dL (NEGATIVE)
[2024-06-18 03:05] LABS: APPEARANCE,URINE CLEAR (CLEAR); COLOR,URINE YELLOW (YELLOW)
[2024-06-18 03:06] LABS: A/G RATIO 1.2; ALANINE AMINOTRANSFERASE,ALT 34 U/L (12-36); ALBUMIN 4.4 g/dL (3.5-5.2); ALKALINE PHOSPHATASE 98 IU/L (56-112); ASPARTATE AMNIOTRANSFERASE,AST 36 IU/L (5-25); BILIRUBIN TOTAL 0.4 mg/dL (0.1-1.3); PROTEIN TOTAL,TP 8.1 g/dL (6.0-8.0)
[2024-06-18] MEDS: HYDROmorphone 2 MG/ML SDV IVPUSH ONE (03:08)
[2024-06-18 03:26] LABS: MEAN CORPUSCULAR VOLUME 112.6 fL (76.7-100.5)
[2024-06-18] MEDS: Iopamidol 755 Mg/ML 100 ML Bottle IV SCH (03:34)
[2024-06-18 03:46] VITALS: BP 111/82; PULSE 56
== END 2024-06-18 04:43 ==
LOC: FB.ED 02:03
DX: R10.32 Left lower quadrant pain (principal); J45.909 Unspecified asthma, uncomplicated; Z86.16 Personal history of COVID-19; F17.210 Nicotine dependence, cigarettes, uncomplicated; Z88.8 Allergy status to other drugs, medicaments and biological substances; Z88.2 Allergy status to sulfonamides
CPT/HCPCS: 36415; 74177; 80053; 80307; 81003; 81025; 83690; 85025; 96374; 96375; 99284; 99285-25; J1171; J1885; J2405; Q9967

== ENCOUNTER 2024-08-11 09:18 | Emergency (ER) | payer SELFPAY ==
[2024-08-11] MEDS ORDERED: Sodium Chloride 0.9% 10 ML Syringe FLUSH PRN (09:47)
[2024-08-11] MEDS: Ondansetron 4 MG/2 ML SDV IVPUSH ONE (10:06)
[2024-08-11] MEDS: Ketorolac 30 MG/ML SDV IVPUSH ONE (10:08)
[2024-08-11 10:27] LABS: BASOPHILS ABSOLUTE AUTO 0.1 x10-3/uL (0.0-0.1); BASOPHILS PERCENT AUTO 0.9 % (0.2-1.5); EOSINOPHILS ABSOLUTE AUTO 0.1 x10-3/uL (0.0-0.8); HEMATOCRIT 46.8 % (34.2-48.2); HEMOGLOBIN 16.3 g/dL (11.4-15.5); LYMPHOCYTES ABSOLUTE AUTO 1.1 x10-3/uL (1.0-4.4); LYMPHOCYTES PERCENT AUTO 10.3 % (18.4-52.1); MEAN CORPUSCULAR HEMOGLOBIN 39.1 pg (23.9-33.9); MEAN CORPUSCULAR HGB CONC 34.7 g/dL (31.9-34.8); MEAN CORPUSCULAR VOLUME 112.8 fL (76.7-100.5); MONOCYTES ABSOLUTE AUTO 0.5 x10-3/uL (0.3-1.0); MONOCYTES PERCENT AUTO 4.7 % (4.4-15.7); NEUTROPHILS ABSOLUTE AUTO 8.5 x10-3/uL (1.5-6.3); NEUTROPHILS PERCENT AUTO 83.1 % (30.8-76.2); PLATELET COUNT,PLT 220 x10(3)uL (151-488); RED BLOOD CELL COUNT 4.15 x10(6)uL (3.60-5.20); RED CELL DISTRIBUTION WIDTH 14.3 % (12.3-16.5); WHITE BLOOD CELL COUNT,WBC 10.2 x10-3/uL (3.0-10.3)
[2024-08-11 10:29] LABS: BLOOD UREA NITROGEN,BUN 8 mg/dL (7-18); CALCIUM 9.6 mg/dL (8.6-10.2); CARBON DIOXIDE,CO2 25 mmol/L (21-32); CHLORIDE,CL 101 mmol/L (100-110); CREATININE 0.8 mg/dL (0.55-1.02); EST CRCL DRUG DOSING (CG) 96.73 mL/min; ESTIMATED GFR 105 mL/min (>60); GLUCOSE RANDOM 92 mg/dL (80-116); POTASSIUM,K 3.8 mmol/L (3.5-5.3); SODIUM,NA 139 mmol/L (135-145)
[2024-08-11 10:31] LABS: LIPASE 29 U/L (16-77)
[2024-08-11 10:38] LABS: C-REACTIVE PROTEIN < 0.50 mg/dL (<0.50)
[2024-08-11 10:39] LABS: LACTIC ACID 1.2 mmol/L (0.4-2.0)
[2024-08-11 10:41] LABS: A/G RATIO 1.5; ALANINE AMINOTRANSFERASE,ALT 27 U/L (12-36); ALBUMIN 4.8 g/dL (3.5-5.2); ALKALINE PHOSPHATASE 95 IU/L (56-112); ASPARTATE AMNIOTRANSFERASE,AST 28 IU/L (5-25); BILIRUBIN TOTAL 0.8 mg/dL (0.1-1.3); PROTEIN TOTAL,TP 8.1 g/dL (6.0-8.0)
[2024-08-11] MEDS: Iopamidol 755 Mg/ML 100 ML Bottle IV ONE (10:44)
[2024-08-11] MEDS: Morphine 2 MG/ML SYRINGE IVPUSH ONE ×2 (10:58→11:42)
[2024-08-11] MEDS: Sodium Chloride 0.9% 1,000 ML IV SCH (11:00)
[2024-08-11] MEDS: Promethazine 12.5 MG in Sodium Chloride 0.9% 50 ML IV ONE (11:12)
[2024-08-11] MEDS: LORazepam 2 MG/ML SDV IVPUSH ONE (11:56)
[2024-08-11 12:00] VITALS: BP 124/65; PULSE 60
== END 2024-08-11 12:20 ==
LOC: FB.ED 09:18
DX: N83.201 Unspecified ovarian cyst, right side (principal); N83.202 Unspecified ovarian cyst, left side; R11.2 Nausea with vomiting, unspecified; J45.909 Unspecified asthma, uncomplicated; Z86.16 Personal history of COVID-19; Z72.0 Tobacco use; Z88.2 Allergy status to sulfonamides; Z88.8 Allergy status to other drugs, medicaments and biological substances
CPT/HCPCS: 74177; 80053; 83605; 83690; 85025; 86140; 96365; 96375; 96376; 99285; J1885; J2060; J2270; J2405; J2550; J3490; J7030; Q9967

== ENCOUNTER 2025-02-17 16:00 | Emergency (ER) | payer OTHER ==
[2025-02-17] MEDS: Ondansetron 4 MG/2 ML SDV IVPUSH ONE (16:55)
[2025-02-17 18:33] VITALS: BP 127/73; PULSE 62
== END 2025-02-17 18:42 | disposition home or self-care (01) ==
LOC: FB.ED 16:00
DX: R11.2 Nausea with vomiting, unspecified (principal); Z88.2 Allergy status to sulfonamides; Z88.8 Allergy status to other drugs, medicaments and biological substances; Z86.16 Personal history of COVID-19
CPT/HCPCS: 96374; 96375; 99283; J2405; J2765

== ENCOUNTER 2025-03-04 15:46 | Emergency (ER) | payer OTHER ==
[2025-03-04] MEDS ORDERED: Sodium Chloride 0.9% 10 ML Syringe FLUSH PRN (16:38)
[2025-03-04] MEDS: Dexamethasone 4 MG/ML 5 ML MDV IVPUSH ONE (16:59)
[2025-03-04] MEDS: diphenhydrAMINE 50 MG/ML SDV IVPUSH ONE (17:00)
[2025-03-04] MEDS: Ondansetron 4 MG/2 ML SDV IVPUSH ONE (17:00)
[2025-03-04 17:02] LABS: BLOOD UREA NITROGEN,BUN 12 mg/dL (7-18); CARBON DIOXIDE,CO2 24 mmol/L (21-32); CHLORIDE,CL 99 mmol/L (100-110); CREATININE 0.8 mg/dL (0.55-1.02); EST CRCL DRUG DOSING (CG) 95.89 mL/min; ESTIMATED GFR 104 mL/min (>60); GLUCOSE RANDOM 85 mg/dL (80-116); POTASSIUM,K 3.2 mmol/L (3.5-5.3); SODIUM,NA 134 mmol/L (135-145)
[2025-03-04 18:03] VITALS: BP 130/60; PULSE 65
[2025-03-04] MEDS: NS + KCl 20mEq/L 1,000 ML IV SCH (18:03)
== END 2025-03-04 19:47 | disposition home or self-care (01) ==
LOC: FB.ED 15:46
DX: R11.2 Nausea with vomiting, unspecified (principal); F17.210 Nicotine dependence, cigarettes, uncomplicated; Z86.16 Personal history of COVID-19; Z79.899 Other long term (current) drug therapy; Z88.2 Allergy status to sulfonamides; Z88.5 Allergy status to narcotic agent
CPT/HCPCS: 80048; 96361; 96365; 96366; 96375; 99283; J1100; J1200; J2405; J3480; J7030

== ENCOUNTER 2025-08-06 16:39 | Emergency (ER) | payer OTHER ==
[2025-08-06] MEDS: Ondansetron 4 MG/2 ML SDV IVPUSH ONE (17:03)
[2025-08-06 17:06] LABS: BASOPHILS ABSOLUTE AUTO 0.1 x10-3/uL (0.0-0.1); BASOPHILS PERCENT AUTO 0.9 % (0.2-1.5); EOSINOPHILS ABSOLUTE AUTO 0.1 x10-3/uL (0.0-0.8); EOSINOPHILS PERCENT AUTO 0.7 % (0.6-8.1); LYMPHOCYTES ABSOLUTE AUTO 1.3 x10-3/uL (1.0-4.4); LYMPHOCYTES PERCENT AUTO 15.6 % (18.4-52.1); MEAN PLATELET VOLUME 8.7 fL (7.1-12.4); MONOCYTES ABSOLUTE AUTO 0.6 x10-3/uL (0.3-1.0); MONOCYTES PERCENT AUTO 6.9 % (4.4-15.7); NEUTROPHILS ABSOLUTE AUTO 6.3 x10-3/uL (1.5-6.3); NEUTROPHILS PERCENT AUTO 75.9 % (30.8-76.2); PLATELET COUNT,PLT 182 x10(3)uL (151-488); RED BLOOD CELL COUNT 4.72 x10(6)uL (3.60-5.20); RED CELL DISTRIBUTION WIDTH 14.3 % (12.3-16.5); WHITE BLOOD CELL COUNT,WBC 8.3 x10-3/uL (3.0-10.3)
[2025-08-06 17:09] LABS: BLOOD UREA NITROGEN,BUN 12 mg/dL (7-18); CARBON DIOXIDE,CO2 23 mmol/L (21-32); CHLORIDE,CL 97 mmol/L (100-110); CREATININE 0.7 mg/dL (0.55-1.02); EST CRCL DRUG DOSING (CG) 109.59 mL/min; ESTIMATED GFR 122 mL/min (>60); GLUCOSE RANDOM 81 mg/dL (80-116); POTASSIUM,K 3.6 mmol/L (3.5-5.3); SODIUM,NA 135 mmol/L (135-145)
[2025-08-06 17:15] LABS: A/G RATIO 1.4; ALANINE AMINOTRANSFERASE,ALT 13 U/L (12-36); ASPARTATE AMNIOTRANSFERASE,AST 12 IU/L (5-25); BILIRUBIN TOTAL 1.4 mg/dL (0.1-1.3); PROTEIN TOTAL,TP 8.2 g/dL (6.0-8.0)
[2025-08-06 17:19] LABS: LACTIC ACID 0.9 mmol/L (0.4-2.0)
[2025-08-06] MEDS: Prochlorperazine 10 MG/2 ML SDV IVPUSH ONE (17:28)
[2025-08-06] MEDS: Sodium Chloride 0.9% 10 ML Syringe FLUSH PRN (18:20)
[2025-08-06 18:26] VITALS: BP 107/52; PULSE 76
== END 2025-08-06 18:45 | disposition home or self-care (01) ==
LOC: FB.ED 16:39
DX: R11.2 Nausea with vomiting, unspecified (principal); E86.0 Dehydration; F17.210 Nicotine dependence, cigarettes, uncomplicated; Z88.2 Allergy status to sulfonamides; Z88.8 Allergy status to other drugs, medicaments and biological substances; Z86.16 Personal history of COVID-19
CPT/HCPCS: 36415; 80053; 83605; 83690; 83735; 85025; 86140; 87428; 96361; 96365; 96375; 99284; J0780; J2405; J2550; J7030; 99283